=== PATIENT | female | born 1980 | race Caucasian/White ===

== ENCOUNTER → 2019-11-14 15:18 | Outpatient (CLI) | payer OTHER, SELFPAY ==
[2019-11-14 18:20] LABS: Free T3 2.2 pg/mL (2.18-3.98); T4 Free Direct 1.26 ng/dL (0.76-1.46); Thyroid Stim Hormone (TSH) 6.44 uIU/mL (0.358-3.74)
[2019-11-16 11:08] LABS: Thyroid Peroxidase AB 44 IU/mL (0-34)
== END ==
PROVIDERS: Family Provider Internal Medicine; PCP Internal Medicine; Referring Provider Internal Medicine; Visit Provider Internal Medicine
DX: R79.89 Other specified abnormal findings of blood chemistry (principal)
CPT/HCPCS: 36415; 84439; 84443; 84481; 86376

== ENCOUNTER → 2024-04-04 | Outpatient (CLI) | payer SELFPAY ==
--- NOTE | 2024-04-04 12:37 | BI_ITS ---
MAMMOGRAPHY - BILATERAL SCREENING 3-D TOMOSYNTHESIS REASON FOR EXAM: Female, 44 years old. Routine screening PERTINENT HISTORY: No significant family history. TECHNIQUE: 2-D mammograms and 3-D Tomosynthesis of the breast (s) were performed. CAD was performed. COMPARISON: None. Baseline examination. FINDINGS: The breast composition is composed of scattered fibroglandular density. Scattered benign calcifications are seen. No dense spiculated masses or suspicious microcalcifications are identified. No architectural distortion is identified. There is no skin thickening or retraction. There has been no significant change since the prior study. BI/SCRN MAMM (CAD)W/CARLINE BILAT IMPRESSION: No mammographic signs of malignancy. Routine yearly mammograms recommended. ASSESSMENT CATEGORY: BIRADS Category 1: Negative. A letter regarding these results will be sent to the patient by the facility within 30 days. FOLLOW UP RECOMMENDATION: Yearly follow up mammogram recommended. (A) Approximately 10% of breast cancers are not detected by mammography. A normal mammogram should not delay biopsy of a clinically suspicious abnormality. Electronically Signed: Jae Cruz MD at 14:23 EDT ,
== END | disposition home or self-care (01) ==
PROVIDERS: PCP Internal Medicine; Referring Provider Internal Medicine; Visit Provider Internal Medicine
DX: Z12.31 Encounter for screening mammogram for malignant neoplasm of breast (principal)
CPT/HCPCS: 77063; 77067

== ENCOUNTER → 2025-04-07 | Outpatient (CLI) | payer OTHER, SELFPAY ==
[2025-04-07 18:04] LABS: Absolute Lymphocyte Count 3.15 X10^3/uL (0.83-4.51); Absolute Neutrophil Count 8.4 X10^3/uL (2.0-7.7); Basophil# 0.03 X10^3/uL; Basophil% 0.2 % (0-1); Eosinophil# 0.04 X10^3/uL; Eosinophils% 0.3 % (0-5); Hematocrit 44.7 % (37-47); Lymphocyte # 3.15 X10^3/ul (0.83-4.51); Lymphocyte % 25.6 % (19-41); Mean Corp Hgb Conc 33.6 g/dL (32-36); Mean Corpuscular Hgb 30.1 pg (27.0-32.0); Mean Corpuscular Volume 89.8 fL (81-99); Mean Platelet Vol. 9.5 fl (6.2-12.0); Monocyte# 0.64 X10^3/uL; Monocyte% 5.2 % (0-10); NRBC Flagged by Analyzer 0 % (0-5); Neutrophil % 68.4 % (47-70); Platelet Count 319 K/mm3 (150-450); RBC Distribution Width CV 12.6 % (11.6-14.6); RBC Distribution Width SD 41.3 fl (35.1-43.9); Red Blood Count 4.98 M/mm3 (4.2-5.4); White Blood Count 12.3 K/mm3 (4.4-11.0)
[2025-04-07 18:58] LABS: ALB/GLOB Ratio 1.3 RATIO (0.9-2.4); AST(SGOT) 29 U/L (<=31); Alanine Aminotransfer ALT/SGPT 41 U/L (<=34); Albumin, Serum 4.3 g/dL (3.5-5.0); Alkaline Phosphatase 90 U/L (35-104); Anion Gap 15 (5-15); BUN 15 mg/dL (4-19); BUN/Creat Ratio 23.5 RATIO (10-20); Calcium,Total 8.9 mg/dL (7.6-11.0); Carbon Dioxide 23.5 mmol/L (21.0-32.0); Chloride 100 mmol/L (98-108); Cholesterol 187 mg/dL (<=200); Creatinine, Serum 0.62 mg/dL (0.70-1.20); EST Glomerular Filtration Rate 111 (>60); Globulin 3.2 g/dL (2.2-4.2); Glucose 95 mg/dL (70-99); High Density Lipoprotein 47 mg/dL; Low Density Lipoprotein Calc. 109 mg/dL; Potassium 3.5 mmol/L (3.3-5.1); Protein, Total 7.5 g/dL (5.9-8.4); Sodium Level 139 mmol/L (133-145); Total Bilirubin 0.41 mg/dL (0.00-1.30); Triglycerides 153 mg/dL; Very Low Density Lipoprotein 31 mg/dL (5-40); Vitamin B12 546 pg/mL (180-914); Vitamin D,25 Hydroxy 39.9 ng/mL (30-100); cholesterol:hdl ratio screen 3.96
== END | disposition home or self-care (01) ==
LOC: MTLAB 15:42
PROVIDERS: PCP Internal Medicine; Referring Provider Internal Medicine; Visit Provider Internal Medicine
DX: Z13.220 Encounter for screening for lipoid disorders (principal); R53.83 Other fatigue
CPT/HCPCS: 36415; 80053; 80061; 82306; 82607; 85025

== ENCOUNTER → 2025-04-14 | Outpatient (CLI) | payer OTHER, SELFPAY ==
--- NOTE | 2025-04-14 15:31 | BI_ITS ---
EXAM: SCRN MAMM (CAD)W/CARLINE BILAT DATE: 04/14/2025 CLINICAL HISTORY: F, Age 45 y/o , SCREENING BREAST CANCER RISK ASSESSMENT: Na TECHNIQUE: Bilateral screening digital breast tomosynthesis with 2D and 3D images. Computer aided detection. COMPARISON: Prior exam(s) were compared FINDINGS: TISSUE DENSITY: The breast tissue is heterogenously dense, which may obscure small masses. Bilateral Breast Mammographic Findings: No suspicious masses, calcifications or other abnormalities are identified. BI/SCRN MAMM (CAD)W/CARLINE BILAT IMPRESSION: OVERALL FINAL ASSESSMENT: BIRADS 1 NEGATIVE RECOMMENDATION: Routine annual follow-up in 1 Year A letter with findings and recommendations will be mailed to the patient. Reading Location: [id number]
== END | disposition home or self-care (01) ==
LOC: OPBI 15:30
PROVIDERS: PCP Internal Medicine; Referring Provider Internal Medicine; Visit Provider Internal Medicine
DX: Z12.31 Encounter for screening mammogram for malignant neoplasm of breast (principal)
CPT/HCPCS: 77063; 77067

== ENCOUNTER → 2025-05-11 | Outpatient (CLI) | payer OTHER, SELFPAY ==
[2025-05-11 18:03] LABS: Absolute Lymphocyte Count 3.75 X10^3/uL (0.83-4.51); Absolute Neutrophil Count 7.8 X10^3/uL (2.0-7.7); Basophil# 0.04 X10^3/uL; Basophil% 0.3 % (0-1); Eosinophil# 0.12 X10^3/uL; Hematocrit 44.5 % (37-47); Hemoglobin 14.8 g/dL (12.0-15.0); Lymphocyte # 3.75 X10^3/ul (0.83-4.51); Lymphocyte % 30.2 % (19-41); Mean Corp Hgb Conc 33.3 g/dL (32-36); Mean Corpuscular Hgb 30.1 pg (27.0-32.0); Mean Corpuscular Volume 90.6 fL (81-99); Mean Platelet Vol. 9.7 fl (6.2-12.0); Monocyte# 0.68 X10^3/uL; Monocyte% 5.5 % (0-10); NRBC Flagged by Analyzer 0 % (0-5); Neutrophil # 7.81 X10^3/uL (2.7-7.7); Neutrophil % 62.8 % (47-70); Platelet Count 304 K/mm3 (150-450); RBC Distribution Width CV 12.5 % (11.6-14.6); RBC Distribution Width SD 41.2 fl (35.1-43.9); Red Blood Count 4.91 M/mm3 (4.2-5.4); White Blood Count 12.4 K/mm3 (4.4-11.0)
== END | disposition home or self-care (01) ==
LOC: MTLAB 15:37
PROVIDERS: PCP Internal Medicine; Referring Provider Internal Medicine; Visit Provider Internal Medicine
DX: D72.829 Elevated white blood cell count, unspecified (principal); E78.5 Hyperlipidemia, unspecified
CPT/HCPCS: 36415; 85025

== ENCOUNTER → 2025-05-25 | Outpatient (CLI) | payer OTHER, SELFPAY ==
[2025-05-25 18:51] LABS: Hematocrit 46.8 % (37-47); Hemoglobin 15.2 g/dL (12.0-15.0); Immature Granulocytes Count 0.040 X10^3/uL (0.0-0.0); Mean Corp Hgb Conc 32.5 g/dL (32-36); Mean Corpuscular Volume 91.6 fL (81-99); Mean Platelet Vol. 10.0 fl (6.2-12.0); NRBC Flagged by Analyzer 0 % (0-5); Platelet Count 328 K/mm3 (150-450); RBC Distribution Width CV 12.3 % (11.6-14.6); RBC Distribution Width SD 41.7 fl (35.1-43.9); Red Blood Count 5.11 M/mm3 (4.2-5.4); White Blood Count 11.4 K/mm3 (4.4-11.0)
== END | disposition home or self-care (01) ==
LOC: MTLAB 15:57
PROVIDERS: PCP Internal Medicine; Referring Provider Internal Medicine; Visit Provider Internal Medicine
DX: D72.829 Elevated white blood cell count, unspecified (principal)
CPT/HCPCS: 36415; 85025

== ENCOUNTER → 2025-07-10 | Outpatient (CLI) | payer OTHER, SELFPAY ==
--- OUTSIDE RECORDS SUMMARY | 2025-07-10 07:26 | XMS RPT_ITS | CCD ---
Author Organization [facility] Care Team Providers Care Manager Of Development Name Role Phone Kymberly, Dai Unavailable Gravius, Shelby Unavailable Unavailable Unavailable Unavailable Messenger, Lelo Unavailable Unavailable Jonathan, Sunitha Unavailable Unavailable Lane Degroot Unavailable Unavailable Manchak, Nimisha Unavailable Unavailable Messenger, Lelo Unavailable Unavailable Cross, Marilee Unavailable Unavailable Kymberly DO, Dai Unavailable Slarb VIRTUAL ASSISTANT FOR ADVERTISERS, Mayuri Unavailable Unavailable Jonathan VIRTUAL ASSISTANT FOR ADVERTISERS, Sunitha Unavailable Unavailable Unavailable Unavailable Gravius CHIEF DEPUTY, Shelby Unavailable Unavailable Kymberly DO, Dai Unavailable Walker CHIEF DEPUTY, Kayela Unavailable Unavailable Kymberly DO, Dai Attending Unavailable Kymberly DO, Dai Consulting Unavailable Manchak CHIEF DEPUTY, Nimisha Unavailable Unavailable Rashad VIRTUAL ASSISTANT FOR ADVERTISERS, RICARDO Unavailable Unavailable Kymberly DO, Dr. Lala Primary Care Provider Kymberly DO, Dr. Lala Attending Provider [phone] Kymberly DO, Dr. Lala Referring Provider Kymberly, Dai Primary Care Unavailable Kymberly, Dai Attending Unavailable Kymberly, Dai Referring Unavailable Kymberly, Dai Referring Unavailable Kymberly, Dai Primary Care Unavailable Kymberly, Dai Attending Unavailable Kymberly, Dai Primary Care Unavailable Kymberly, Dai Attending Unavailable Kymberly, Dai Referring Unavailable Kymberly, Dai Primary Care Unavailable Kymberly, Dai Attending Unavailable Kymberly, Dai Primary Care Unavailable Kymberly, Dai Attending Unavailable Kymberly, Dai Referring Unavailable Medications Completed/Discontinued Medications Medication Drug Class(es) Dates Sig (Normalized) Sig (Original) Tri-Sprintec (28) 0.18/0.215/0.25 mg-35 mcg (28) oral tablet (20 sources) Progestin, Estrogen Start: 04-02-2023 take 1 tablet by mouth once daily Tri-Sprintec (28) 0.18/0.215/0.25 mg-35 mcg (28) oral tablet 1 Tablet daily for 30 days Quantity: 1 {Packet} Refills: 6 Ordered: 02-Apr-2023 Kymberly BRUCE, Dai Traylor DO Dai Start : 02-Apr-2023 Active Start: 09-18-2022 take 1 tablet by ahsan th once daily Tri-Sprintec 0.18/0.215/0.25 MG-35 MCG Oral Tablet 1 Tablet daily for 30 days Quantity: 1 {Packet} Refills: 6 Ordered: 18-Sep-2022 Kymberly BRUCE Dai Traylor DO Dai Start : 18-Sep-2022 Active Start: 03-10-2022 take 1 tablet by ahsan th once daily Tri-Sprintec 0.18/0.215/0.25 MG-35 MCG Oral Tablet 1 Tablet daily for 30 days Quantity: 1 {Packet} Refills: 6 Ordered: 10-Mar-2022 Kymberly BRUCE, Dai Fariaradha BRUCE Dai Start : 10-Mar-2022 Active Start: 08-26-2021 take 1 tablet by ahsan th once daily Tri-Sprintec 0.18/0.215/0.25 MG-35 MCG Oral Tablet 1 Tablet daily for 30 days Quantity: 1 {Package} Refills: 6 Ordered: 26-Aug-2021 Kymberly DO, Dai Traylor DO Dai Start : 26-Aug-2021 Active Start: 02-03-2021 take 1 tablet by ahsan th once daily Tri-Sprintec 0.18/0.215/0.25 MG-35 MCG Oral Tablet 1 Tablet daily for 30 days Quantity: 1 {Package} Refills: 6 Ordered: 03-Feb-2021 Kymberly DO Dai Traylor DO Dai Start : 03-Feb-2021 Active Start: 07-29-2020 take 1 tablet by ahsan th once daily Tri-Sprintec 0.18/0.215/0.25 MG-35 MCG Oral Tablet 1 Tablet daily for 30 days Quantity: 1 {Package} Refills: 6 Ordered: 29-Jul-2020 Sunitha Castillo LPN Start : 29-Jul-2020 Active End: 02-24-2021 take 1 tablet by mouth once daily Sprintec 28 0.25-35 MG-MCG Oral Tablet 1 qd (0.25-35 MG-MCG) End : 24-Feb-2021 Discontinued take 1 tablet by ahsan once daily Sprintec 28 0.25-35 MG-MCG Oral Tablet 1 qd (0.25-35 MG-MCG) Active levothyroxine sodium 0.15 mg oral capsule (20 sources) l-Thyroxine Start: 07-23-2023 levothyroxine 150 mcg oral capsule 1 (one) Capsule qd except on Sunday take 2 for 0 days Quantity: 30 {Capsule} Refills: 2 Ordered: 20-Aug-2023 Dai Traylor DO, DO, Kathleen Start : 20-Aug-2023 Active Start: 05-28-2023 take 1 capsule by [facility] once daily levothyroxine 150 mcg oral capsule 1 (one) Capsule daily for 0 days Quantity: 30 {Capsule} Refills: 2 Ordered: 28-May-2023 Dai Traylor DO, DO, Kathleen Start : 28-May-2023 Active Start: 03-26-2023 take 1 capsule by [facility] once daily levothyroxine 137 mcg oral capsule 1 (one) Capsule daily for 0 days Quantity: 30 {Capsule} Refills: 5 Ordered: 26-Mar-2023 Dai Traylor DO, DO, Kathleen Start : 26-Mar-2023 Active Start: 10-20-2022 take 1 capsule by [facility] once daily levothyroxine 125 mcg oral capsule 1 (one) Capsule daily for 0 days Quantity: 30 {Capsule} Refills: 5 Ordered: 20-Oct-2022 Dai Traylor DO, DO, Kathleen Start : 20-Oct-2022 Active Start: 10-19-2022 take 1 capsule by [facility] once daily levothyroxine 137 mcg oral capsule 1 (one) Capsule daily for 0 days Quantity: 30 {Capsule} Refills: 5 Ordered: 19-Oct-2022 Dai Traylor DO, DO, Kathleen Start : 19-Oct-2022 Active Start: 03-24-2022 take 1 capsule by mo ut once daily Levothyroxine Sodium 137 MCG Oral Capsule 1 (one) Capsule daily for 0 days Quantity: 30 {Capsule} Refills: 5 Ordered: 24-Mar-2022 Kymberly DODai DODanaDai Start : 24-Mar-2022 Active Start: 03-21-2022 take 1 capsule by mo uth once daily Levothyroxine Sodium 137 MCG Oral Capsule 1 (one) Capsule daily for 0 days Quantity: 30 {Capsule} Refills: 5 Ordered: 21-Mar-2022 Kymberly DODai DO, Kathleen Start : 21-Mar-2022 Active Start: 01-23-2022 take 1 capsule by mo ut once daily Levothyroxine Sodium 137 MCG Oral Capsule 1 (one) Capsule daily for 0 days Quantity: 30 {Capsule} Refills: 0 Ordered: 23-Jan-2022 Dai Traylor DO, DO, Kathleen Start : 23-Jan-2022 Active Start: 12-22-2021 take 1 capsule by mo ut once daily Levothyroxine Sodium 137 MCG Oral Capsule 1 (one) Capsule daily for 0 days Quantity: 30 {Capsule} Refills: 0 Ordered: 22-Dec-2021 Dai Traylor DO, DO, Kathleen Start : 22-Dec-2021 Active Start: 11-23-2021 take 1 capsule by mo ut once daily Levothyroxine Sodium 137 MCG Oral Capsule 1 (one) Capsule daily for 0 days Quantity: 30 {Capsule} Refills: 0 Ordered: 23-Nov-2021 Kymberly DODai DO, Kathleen Start : 23-Nov-2021 Active Start: 02-03-2021 take 1 tablet by ahsan th once daily, then take 0.5 tablet by mouth Levothyroxine Sodium 125 MCG Oral Tablet 1 (one) Tablet qd and 1/2 mckeon on sat for 90 days Quantity: 90 {Tablet} Refills: 3 Ordered: 03-Feb-2021 Kymberly DODai DO, Kathleen Start : 03-Feb-2021 Active Start: 09-28-2020 take 1 tablet by ahsan th once daily, then take 0.5 tablet by mouth Levothyroxine Sodium 125 MCG Oral Tablet 1 (one) Tablet qd and 1/2 mckeon on sat for 30 days Quantity: 30 {Tablet} Refills: 2 Ordered: 28-Sep-2020 Kymberly DO, Dai Kymberly DO Dai Start : 28-Sep-2020 Active Start: 09-22-2020 take 1 tablet by ahsan th once daily, then take 0.5 tablet by mouth Levothyroxine Sodium 125 MCG Oral Tablet 1 (one) Tablet qd and 1/2 mckeon on sat for 30 days Quantity: 30 {Tablet} Refills: 2 Ordered: 23-Sep-2020 Kymberly DO, Dai Kymberly DO Dai Start : 23-Sep-2020 Active Start: 07-21-2020 take 1 tablet by ahsan th once daily, then take 0.5 tablet by mouth Levothyroxine Sodium 125 MCG Oral Tablet 1 (one) Tablet qd and 1/2 mckeon on sat and sun for 30 days Quantity: 30 {Tablet} Refills: 2 Ordered: 21-Jul-2020 Kymberly DO, Dai Kymberly DO Dai Start : 21-Jul-2020 Active Start: 07-20-2020 take 1 tablet by ahsan th once daily, then take 0.5 tablet by mouth Levothyroxine Sodium 125 MCG Oral Tablet 1 (one) Tablet qd and 1/2 mckeon on sat and sun for 30 days Quantity: 30 {Tablet} Refills: 2 Ordered: 20-Jul-2020 Kymberly DO, Daicarlin Traylor DOHeavenlyDai Start : 20-Jul-2020 Active Start: 05-31-2020 take 1 tablet by ahsan th once daily, then take 0.5 tablet by mouth Levothyroxine Sodium 125 MCG Oral Tablet 1 (one) Tablet qd and 1/2 mckeon on sat and sun for 0 days Quantity: 30 {Tablet} Refills: 2 Ordered: 31-May-2020 Kymberly DO Dai Kymberly DO Dai Start : 31-May-2020 Active Start: 04-12-2020 take 1 tablet by ahsan th once daily Levothyroxine Sodium 125 MCG Oral Tablet 1 (one) Tablet daily for 0 days Quantity: 30 {Tablet} Refills: 2 Ordered: 12-Apr-2020 Kymberly DO, Dai Kymberly DO Dai Start : 12-Apr-2020 Active take 1 capsule by [facility] once daily Levothyroxine Sodium 125 MCG Oral Capsule 1 qd (125 MCG) Inactive take 1 capsule by mo ut once daily Levothyroxine Sodium 125 MCG Oral Capsule 1 qd (125 MCG) Active liothyronine sodium 0.025 mg oral tablet (20 sources) l-Triiodothyronine Start: 11-17-2019 End: 03-29-2020 take 0.5 tablet by mouth once daily Cytomel 25 MCG Oral Tablet 1/2 Tablet qd for 0 days Quantity: 30 {Tablet} Refills: 3 Ordered: 29-Mar-2020 Shelby Chiang CMA Start : 17-Nov-2019 End : 29-Mar-2020 Inactive Problems Active Problems Problem Classification Problem Date Documented Date Episodic/Chronic Contraceptive and procreative management (20 sources) Oral contraception status; Translations: [Family planning, BCP ( control pills) maintenance] 07-29-2020 Episodic Diseases of white blood cells (2 sources) Elevated white blood cell count, unspecified; Translations: [Elevated white blood cell count, unspecified] Onset: 05-28-2025 Chronic Fever of unknown origin (18 sources) Fever; Translations: [Fever] Resolved: 03-23-2023 10-25-2022 Episodic Other congenital anomalies (20 sources) Barney syndrome; 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 Other lower respiratory disease (18 sources) Cough; Translations: [Cough] Resolved: 03-23-2023 10-25-2022 Episodic Other nutritional; endocrine; and metabolic disorders (20 sources) Body mass index 30+ - obesity; Translations: [BMI 33.0-33.9,adult] Resolved: 03-23-2023 03-29-2020 Chronic Other nutritional; endocrine; and metabolic disorders (20 sources) Overweight in adulthood with body mass index of 25 or more but less than 30; Translations: [BMI 27.0-27.9,adult] Resolved: 03-17-2022 03-17-2022 Episodic Other screening for suspected conditions (not mental disorders or infectious disease) (20 sources) Thyroid hormone tests abnormal; Translations: [Abnormal TSH] Onset: 04-14-2025 Resolved: 03-17-2022 03-29-2020 Episodic Pneumonia (except that caused by tuberculosis or sexually transmitted disease) (18 sources) Severe acute respiratory syndrome; Translations: [SARS (severe acute respiratory syndrome)] Resolved: 03-23-2023 10-25-2022 Episodic Residual codes; unclassified (20 sources) Influenza vaccination declined; Translations: [Influenza vaccination declined] 10-12-2021 Episodic Residual codes; unclassified (20 sources) Non-smoker; Translations: [Non-smoker] 10-12-2021 Episodic Thyroid disorders (20 sources) Slade thyroiditis; 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 Unclassified (20 sources) BMI 33.0-33.9,adult Unclassified (20 sources) Influenza vaccination declined; Translations: [Influenza vaccination declined] 03-29-2020 Unclassified (20 sources) Patient encounter status; Translations: [Encounter for screening for lipid disorder] 03-29-2020 Unclassified (20 sources) Abnormal TSH Unclassified (20 sources) Non-smoker; Translations: [Non-smoker] 03-29-2020 Unclassified (20 sources) Adult hypothyroidism Unclassified (20 sources) Unclassified (20 sources) 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) BMI 27.0-27.9,adult Unclassified (2 sources) BMI 31.0-31.9,adult Past or Other Problems Problem Classification Problem Date Documented Date Episodic/Chronic Chronic obstructive pulmonary disease and bronchiectasis (9 sources) Chronic obstructive pulmonary disease and bronchiectasis Other nutritional; endocrine; and metabolic disorders (6 sources) Body mass index 25-29 - overweight; Translations: [BMI 27.0-27.9,adult] Resolved: 03-17-2022 10-12-2021 Episodic Unclassified (20 sources) Encounter for well adult exam with abnormal findings Unclassified (20 sources) BMI 35.0-35.9,adult Unclassified (16 sources) Family planning, BCP ( control pills) maintenance NEGATED: Highlighted row has been ruled out!Unclassified (20 sources) Problem Onset: 09-29-2019 03-29-2020 Results Test Name Value Interpretation Reference Range Facility Absolute lymphocyte countOrd ered By: Dai Traylor on 05-25-2025 Lymphocytes Auto (Unsp spec) [#/Vol] 3.31 10*3/uL 0.83-4.51 [facility] Absolute neutrophil countOrd ered By: Dai Traylor on 05-25-2025 Neutrophils (Bld) [#/Vol] 7.1 10*3/uL 2.0-7.7 [facility] Automated lymphocyte count a s percentage of total leukocytesOrdered By: Dai Traylor on 05-25-2025 Lymphocytes/100 WBC Auto (Unsp spec) 29.2 % 19-41 [facility] Basophil percentageOrdered B y: Dai Traylor on 05-25-2025 Basophils/100 WBC (Bld) 0.4 % 0-1 [facility] CBC W/Diff, Automatedon 05-12-2024 Absolute Lymph 3.31 X10 3/uL Normal 0.83-4.51 [facility] Comment on above: Performed By: #### L 100.0100 #### [facility] [address] [place], [address] Absolute Neut 7.1 X10 3/uL Normal 2.0-7.7 [facility] Comment on above: Performed By: #### L 100.0100 #### [facility] [address] [place], [address] Basophils/100 WBC (Bld) 0.4 % Normal 0-1 [facility] Comment on above: Performed By: #### L 100.0100 #### [facility] [address] [place], [address] Eosinophils/100 WBC (Bld) 0.6 % Normal 0-5 [facility] Comment on above: Performed By: #### L 100.0100 #### [facility] [address] [place], [address] Erythrocyte distribution width (RBC) [Ratio] 12.3 % Normal 11.6-14.6 [facility] Comment on above: Performed By: #### L 100.0100 #### [facility] [address] [place], [address] Hematocrit (Bld) [Volume fraction] 46.8 % Normal 37-47 [facility] Comment on above: Performed By: #### L 100.0100 #### [facility] [address] [place], [address] Hemoglobin (Bld) [Mass/Vol] 15.2 g/dL High 12.0-15.0 [facility] Comment on above: Performed By: #### L 100.0100 #### [facility] [address] [place], [address] IG% 0.400 Normal 0.0-0.9 [facility] Comment on above: Result Comment: IG% - Immature Granulocytes (promyelocytes, myelocytes and metamyelocytes) > 1% indicates that a LEFT SHIFT is Present. Performed By: #### L 100.0100 #### [facility] [address] [place], [address] Lymphocytes/100 WBC (Bld) 29.2 % Normal 19-41 [facility] Comment on above: Performed By: #### L [id number] #### [facility] [address] [place], [address] MCH (RBC) [Entitic mass] 29.7 pg Normal 27.0-32.0 [facility] Comment on above: Performed By: #### L 100.0100 #### [facility] [address] [place], [address] MCHC (RBC) [Mass/Vol] 32.5 g/dL Normal 32-36 [facility] Comment on above: Performed By: #### L 100.0100 #### [facility] [address] [place], [address] MCV (RBC) [Entitic vol] 91.6 fL Normal 81-99 [facility] Comment on above: Performed By: #### L 100.0100 #### [facility] [address] [place], [address] Monocytes/100 WBC (Bld) 7.1 % Normal 0-10 [facility] Comment on above: Performed By: #### L 100.0100 #### [facility] [address] [place], [address] Neutrophils/100 WBC (Bld) 62.3 % Normal 47-70 [facility] Comment on above: Performed By: #### L 100.0100 #### [facility] [address] [place], [address] Nucleated RBC (Bld) [#/Vol] 0 10*3/uL Normal 0-5 [facility] Comment on above: Performed By: #### L 100.0100 #### [facility] [address] [place], [address] Platelet mean volume (Bld) [Entitic vol] 10.0 fL Normal 6.2-12.0 [facility] Comment on above: Performed By: #### L 100.0100 #### [facility] [address] [place], [address] Platelets (Bld) [#/Vol] 328 10*3/uL Normal 150-450 [facility] Comment on above: Performed By: #### L 100.0100 #### [facility] [address] [place], [address] RBC (Bld) [#/Vol] 5.11 10*6/uL Normal 4.2-5.4 [facility] Comment on above: Performed By: #### L 100.0100 #### [facility] [address] [place], [address] RDW SD 41.7 fl Normal 35.1-43.9 [facility] Comment on above: Performed By: #### L 100.0100 #### [facility] [address] [place], [address] WBC (Bld) [#/Vol] 11.4 10*3/uL High 4.4-11.0 [facility] Comment on above: Performed By: #### L 100.0100 #### [facility] [address] [place], [address] Eosinophil percentageOrdered By: Dai Traylor on 05-25-2025 Eosinophils/100 WBC (Bld) 0.6 % 0-5 [facility] Erythrocyte distribution wid th ratioOrdered By: Dai Traylor on 05-25-2025 Erythrocyte distribution width (RBC) [Ratio] 12.3 % 11.6-14.6 [facility] Erythrocyte distribution wid th standard deviationOrdered By: Daicarlin Traylor on 05-25-2025 Erythrocyte distribution width (RBC) [Ratio] 41.7 fl 35.1-43.9 [facility] Hematocrit Auto (Bld) [Volum e fraction]Ordered By: Dai Traylor on 05-25-2025 Hematocrit (Bld) [Volume fraction] 46.8 % 37-47 [facility] Hemoglobin measurementOrdere d By: Dai Traylor on 05-25-2025 Hemoglobin (Bld) [Mass/Vol] 15.2 g/dL High 12.0-15.0 [facility] Immature granulocytes/100 WB C Auto (Bld)Ordered By: Dai Traylor on 05-25-2025 Immature granulocytes/100 WBC (Bld) 0.400 % 0.0-0.9 [facility] Comment on above: IG% - Immature Granu locytes (promyelocytes, myelocytes and metamyelocytes) > 1% indicates that a LEFT SHIFT is Present. MCV (mean corpuscular volume ) determinationOrdered By: Dai Traylor on 05-25-2025 MCV (RBC) [Entitic vol] 91.6 fL 81-99 [facility] Mean corpuscular hemoglobin (MCH) determinationOrdered By: Dai Traylor 05-25-2025 MCH (RBC) [Entitic mass] 29.7 pg 27.0-32.0 [facility] Mean corpuscular hemoglobin concentration (MCHC) determinationOrdered By: Dai Traylor on 05-25-2025 MCHC (RBC) [Mass/Vol] 32.5 g/dL 32-36 [facility] Mean platelet volume determi nationOrdered By: Dai Kymberly on 05-25-2025 Platelet mean volume (Bld) [Entitic vol] 10.0 fL 6.2-12.0 [facility] Monocyte percentageOrdered B y: Dai Traylor on 05-25-2025 Monocytes/100 WBC (Bld) 7.1 % 0-10 [facility] Neutrophil percentageOrdered By: Daihodan Traylor on 05-25-2025 Neutrophils/100 WBC (Bld) 62.3 % 47-70 [facility] Nucleated red blood cell per centageOrdered By: Daihodna Traylor on 05-25-2025 Nucleated RBC/100 WBC (Bld) [Ratio] 0 % 0-5 [facility] Platelet countOrdered By: King fan Kymberly on 05-25-2025 Platelets (Bld) [#/Vol] 328 10*3/uL 150-450 [facility] RBC Auto (Bld) [#/Vol]Ordere d By: Dai Kymberly on 05-25-2025 RBC (Bld) [#/Vol] 5.11 10*6/uL 4.2-5.4 [facility] White blood cell (WBC) count Ordered By: Daicarlin Traylor on 05-25-2025 WBC (Bld) [#/Vol] 11.4 10*3/uL High 4.4-11.0 [facility] Absolute lymphocyte countOrd ered By: Dai Traylor on 05-11-2025 Lymphocytes Auto (Unsp spec) [#/Vol] 3.75 10*3/uL 0.83-4.51 [facility] Absolute neutrophil countOrd ered By: Daihodan Traylor on 05-11-2025 Neutrophils (Bld) [#/Vol] 7.8 10*3/uL High 2.0-7.7 [facility] Automated lymphocyte count a s percentage of total leukocytesOrdered By: Dai Traylor on 05-11-2025 Lymphocytes/100 WBC Auto (Unsp spec) 30.2 % 19-41 [facility] Basophil percentageOrdered B y: Dai Traylor on 05-11-2025 Basophils/100 WBC (Bld) 0.3 % 0-1 [facility] CBC W/DiffWilmanon 04-14-2024 Absolute Lymph 3.75 X10 3/uL Normal 0.83-4.51 [facility] Comment on above: Order Comment: RUPAL CANTU REQUESTED ONLY CBC BE DRAWN TODAY Performed By: #### L 100.0100 #### [facility] [address] [place], [address] Absolute Neut 7.8 X10 3/uL High 2.0-7.7 [facility] Comment on above: Order Comment: RUPAL CANTU REQUESTED ONLY CBC BE DRAWN TODAY Performed By: #### L 100.0100 #### [facility] [address] [place], [address] Basophils/100 WBC (Bld) 0.3 % Normal 0-1 [facility] Comment on above: Order Comment: RUPAL CANTU REQUESTED ONLY CBC BE DRAWN TODAY Performed By: #### L 100.0100 #### [facility] [address] [place], [address] Eosinophils/100 WBC (Bld) 1.0 % Normal 0-5 [facility] Comment on above: Order Comment: RUPAL CANTU REQUESTED ONLY CBC BE DRAWN TODAY Performed By: #### L 100.0100 #### [facility] [address] [place], [address] Erythrocyte distribution width (RBC) [Ratio] 12.5 % Normal 11.6-14.6 [facility] Comment on above: Order Comment: RUPAL CANTU REQUESTED ONLY CBC BE DRAWN TODAY Performed By: #### L 100.0100 #### [facility] [address] [place], [address] Hematocrit (Bld) [Volume fraction] 44.5 % Normal 37-47 [facility] Comment on above: Order Comment: RUPAL CANTU REQUESTED ONLY CBC BE DRAWN TODAY Performed By: #### L 100.0100 #### [facility] [address] [place], [address] Hemoglobin (Bld) [Mass/Vol] 14.8 g/dL Normal 12.0-15.0 [facility] Comment on above: Order Comment: RUPAL CANTU REQUESTED ONLY CBC BE DRAWN TODAY Performed By: #### L 100.0100 #### [facility] [address] [place], [address] IG% 0.200 Normal 0.0-0.9 [facility] Comment on above: Order Comment: RUPAL CANTU REQUESTED ONLY CBC BE DRAWN TODAY Result Comment: IG% - Immature Granulocytes (promyelocytes, myelocytes and metamyelocytes) > 1% indicates that a LEFT SHIFT is Present. Performed By: #### L 100.0100 #### [facility] [address] [place], [address] Lymphocytes/100 WBC (Bld) 30.2 % Normal 19-41 [facility] Comment on above: Order Comment: RUPAL CANTU REQUESTED ONLY CBC BE DRAWN TODAY Performed By: #### L 100.0100 #### [facility] [address] [place], [address] MCH (RBC) [Entitic mass] 30.1 pg Normal 27.0-32.0 [facility] Comment on above: Order Comment: RUPAL CANTU REQUESTED ONLY CBC BE DRAWN TODAY Performed By: #### L 100.0100 #### [facility] [address] [place], [address] MCHC (RBC) [Mass/Vol] 33.3 g/dL Normal 32-36 [facility] Comment on above: Order Comment: RUPAL CANTU REQUESTED ONLY CBC BE DRAWN TODAY Performed By: #### L 100.0100 #### [facility] [address] [place], [address] MCV (RBC) [Entitic vol] 90.6 fL Normal 81-99 [facility] Comment on above: Order Comment: RUPAL CANTU REQUESTED ONLY CBC BE DRAWN TODAY Performed By: #### L 100.0100 #### [facility] [address] [place], [address] Monocytes/100 WBC (Bld) 5.5 % Normal 0-10 [facility] Comment on above: Order Comment: RUPAL CANTU REQUESTED ONLY CBC BE DRAWN TODAY Performed By: #### L 100.0100 #### [facility] [address] [place], [address] Neutrophils/100 WBC (Bld) 62.8 % Normal 47-70 [facility] Comment on above: Order Comment: RUPAL CANTU REQUESTED ONLY CBC BE DRAWN TODAY Performed By: #### L 100.0100 #### [facility] [address] [place], [address] Nucleated RBC (Bld) [#/Vol] 0 10*3/uL Normal 0-5 [facility] Comment on above: Order Comment: RUPAL CANTU REQUESTED ONLY CBC BE DRAWN TODAY Performed By: #### L 100.0100 #### [facility] [address] [place], [address] Platelet mean volume (Bld) [Entitic vol] 9.7 fL Normal 6.2-12.0 [facility] Comment on above: Order Comment: RUPAL CANTU REQUESTED ONLY CBC BE DRAWN TODAY Performed By: #### L 100.0100 #### [facility] [address] [place], [address] Platelets (Bld) [#/Vol] 304 10*3/uL Normal 150-450 [facility] Comment on above: Order Comment: RUPAL CANTU REQUESTED ONLY CBC BE DRAWN TODAY Performed By: #### L 100.0100 #### [facility] [address] [place], [address] RBC (Bld) [#/Vol] 4.91 10*6/uL Normal 4.2-5.4 [facility] Comment on above: Order Comment: RUPAL CANTU REQUESTED ONLY CBC BE DRAWN TODAY Performed By: #### L 100.0100 #### [facility] [address] [place], [address] RDW SD 41.2 fl Normal 35.1-43.9 [facility] Comment on above: Order Comment: RUPAL CANTU REQUESTED ONLY CBC BE DRAWN TODAY Performed By: #### L 100.0100 #### [facility] [address] [place], [address] WBC (Bld) [#/Vol] 12.4 10*3/uL High 4.4-11.0 [facility] Comment on above: Order Comment: RUPAL CANTU REQUESTED ONLY CBC BE DRAWN TODAY Performed By: #### L 100.0100 #### [facility] [address] [place], [address] Eosinophil percentageOrdered By: Dai Traylor on 05-11-2025 Eosinophils/100 WBC (Bld) 1.0 % 0-5 [facility] Erythrocyte distribution wid th ratioOrdered By: Dai Traylor on 05-11-2025 Erythrocyte distribution width (RBC) [Ratio] 12.5 % 11.6-14.6 [facility] Erythrocyte distribution wid th standard deviationOrdered By: Dai Traylor on 05-11-2025 Erythrocyte distribution width (RBC) [Ratio] 41.2 fl 35.1-43.9 [facility] Hematocrit Auto (Bld) [Volum e fraction]Ordered By: Dai Traylor on 05-11-2025 Hematocrit (Bld) [Volume fraction] 44.5 % 37-47 [facility] Hemoglobin measurementOrdere d By: Dai Traylor on 05-11-2025 Hemoglobin (Bld) [Mass/Vol] 14.8 g/dL 12.0-15.0 [facility] Immature granulocytes/100 WB C Auto (Bld)Ordered By: Dai Traylor on 05-11-2025 Immature granulocytes/100 WBC (Bld) 0.200 % 0.0-0.9 [facility] Comment on above: IG% - Immature Granu locytes (promyelocytes, myelocytes and metamyelocytes) > 1% indicates that a LEFT SHIFT is Present. MCV (mean corpuscular volume ) determinationOrdered By: Dai Traylor on 05-11-2025 MCV (RBC) [Entitic vol] 90.6 fL 81-99 [facility] Mean corpuscular hemoglobin (MCH) determinationOrdered By: Dai Traylor on 05-11-2025 MCH (RBC) [Entitic mass] 30.1 pg 27.0-32.0 [facility] Mean corpuscular hemoglobin concentration (MCHC) determinationOrdered By: Dai Traylor on 05-11-2025 MCHC (RBC) [Mass/Vol] 33.3 g/dL 32-36 [facility] Mean platelet volume determi nationOrdered By: Dai Traylor on 05-11-2025 Platelet mean volume (Bld) [Entitic vol] 9.7 fL 6.2-12.0 [facility] Monocyte percentageOrdered B y: Dai Traylor on 05-11-2025 Monocytes/100 WBC (Bld) 5.5 % 0-10 [facility] Neutrophil percentageOrdered By: Dai Traylor on 05-11-2025 Neutrophils/100 WBC (Bld) 62.8 % 47-70 [facility] Nucleated red blood cell per centageOrdered By: Dai Traylor on 05-11-2025 Nucleated RBC/100 WBC (Bld) [Ratio] 0 % 0-5 [facility] Platelet countOrdered By: King Traylor on 05-11-2025 Platelets (Bld) [#/Vol] 304 10*3/uL 150-450 [facility] RBC Auto (Bld) [#/Vol]Ordere d By: Dai Traylor on 05-11-2025 RBC (Bld) [#/Vol] 4.91 10*6/uL 4.2-5.4 [facility] White blood cell (WBC) count Ordered By: Dai Traylor on 05-11-2025 WBC (Bld) [#/Vol] 12.4 10*3/uL High 4.4-11.0 [facility] Breast imaging reportOrdered By: Medina Fagan on 04-14-2025 Study report [facility] Imaging Services [address] [place], [place] [id number] SCRN MAMM (CAD)W/CARLINE BILAT MR#: [id number] Acct: [id number] Name: BUFFY HOANG Rep #: [id number] : 1980 F 45 From: Jan Shaw MD PCP: Dr. Dai Traylor DO Status: RE G CLI Study:SCRN MAMM (CAD)W/CARLINE BILAT Date of Exa m: 04/14/25 Exam# [id number] Ordering Dr: Kodak Traylor DO EXAM: SCRN MAMM (CAD)W/CARLINE BILAT DATE: 04/14/2025 CLINICAL HISTORY: F, Age 45 y/o , SCREENING BREAST CANCER RISK ASSESSMENT: Na TECHNIQUE: Bilateral screening digital breast tomosynthesis with 2D and 3D images. Computeraided detection. COMPARISON: Prior exam(s) were compared FINDINGS: TISSUE DENSITY: The breast tissue is heterogenously dense, which may obscure small masses. Bilateral Breast Mammographic Findings: No suspicious masses, calcifications or other abnormalities are identified. BI/SCRN MAMM (CAD)W/CARLINE BILAT IMPRESSION: OVERALL FINAL ASSESSMENT: BIRADS 1 NEGATIVE RECOMMENDATION: Routine annual follow-up in 1 Year A letter with findings and recommendations will be mailed to the patient. Reading Location: [id number] CC: Dr. Dai Traylor DO ~ Patent Agent: Signed [facility] SCRN MAMM (CAD)W/CARLINE BILATo n 04-14-2025 SCRN MAMM (CAD)W/CARLINE BILAT [facility] Imaging Services [address] [place] [id number] SCRN MAMM (CAD)W/CARLINE BILAT MR#: [id number] Acct: [id number] Name: BUFFY HOANG Rep #: [id number] : 1980 F 45 From: Medina Corcoran i, MD PCP: Dr. Dai Traylor DO Status: REG CLI Study: SCRN MAMM (CAD)W/CARLINE BILAT Date of Exam: 02/03 Exam# [id number] Ordering Dr: Dai Traylor DO EXAM: SCRN MAMM (CAD)W/CARLINE BILAT DATE: 04/14/2025 CLINICAL HISTORY: F, Age 45 y/o , SCREENING BREAST CANCER RISK ASSESSMENT: Na TECHNIQUE: Bilateral screening digital breast tomosynthesis with 2D and 3D images. Computer aided detection. COMPARISON: Prior exam(s) were compared FINDINGS: TISSUE DENSITY: The breast tissue is heterogenously dense, which may obscure small masses. Bilateral Breast Mammographic Findings: No suspicious masses, calcifications or other abnormalities are identified. BI/SCRN MAMM (CAD)W/CARLINE BILAT IMPRESSION: OVERALL FINAL ASSESSMENT: BIRADS 1 NEGATIVE RECOMMENDATION: Routine annual follow-up in 1 Year A letter with findings and recommendations will be mailed to the patient. Reading Location: [id number] CC: Dr. Dai Traylor DO Patent Agent: Signed Normal [facility] Absolute lymphocyte countOrd ered By: Dai Traylor on 04-07-2025 Lymphocytes Auto (Unsp spec) [#/Vol] 3.15 10*3/uL 0.83-4.51 [facility] Absolute neutrophil countOrd ered By: Dai Traylor on 04-07-2025 Neutrophils (Bld) [#/Vol] 8.4 10*3/uL High 2.0-7.7 [facility] Anion gap in Serum or Plasma Ordered By: Dai Traylor on 04-07-2025 Anion gap [Moles/Vol] 15 mmol/L 5-15 [facility] Automated lymphocyte count a s percentage of total leukocytesOrdered By: Dai Traylor on 04-07-2025 Lymphocytes/100 WBC Auto (Unsp spec) 25.6 % 19-41 [facility] BUN/creatinine ratioOrdered By: Dai Traylor on 04-07-2025 Urea nitrogen/Creatinine [Mass ratio] 23.5 mg/mg High 10-20 [facility] Basophil percentageOrdered B y: Dai Traylor on 04-07-2025 Basophils/100 WBC (Bld) 0.2 % 0-1 [facility] Bilirubin, totalOrdered By: Dai Traylor on 04-07-2025 Bilirubin [Mass/Vol] 0.41 mg/dL 0.00-1.30 [facility] CBC W/Diff, Automatedon 03-13 Absolute Lymph 3.15 X10 3/uL Normal 0.83-4.51 [facility] Comment on above: Performed By: #### L 500.4050, L100.0100, L500.4100, L503.0106, L506.1001 #### [facility] [address] [place], [address] Absolute Neut 8.4 X10 3/uL High 2.0-7.7 [facility] Comment on above: Performed By: #### L 500.4050, L100.0100, L500.4100, L503.0106, L506.1001 #### [facility] [address] [place], [address] Basophils/100 WBC (Bld) 0.2 % Normal 0-1 [facility] Comment on above: Performed By: #### L 500.4050, L100.0100, L500.4100, L503.0106, L506.1001 #### [facility] [address] [place], [address] Eosinophils/100 WBC (Bld) 0.3 % Normal 0-5 [facility] Comment on above: Performed By: #### L 500.4050, L100.0100, L500.4100, L503.0106, L506.1001 #### [facility] [address] [place], [address] Erythrocyte distribution width (RBC) [Ratio] 12.6 % Normal 11.6-14.6 [facility] Comment on above: Performed By: #### L 500.4050, L100.0100, L500.4100, L503.0106, L506.1001 #### [facility] [address] [place], [address] Hematocrit (Bld) [Volume fraction] 44.7 % Normal 37-47 [facility] Comment on above: Performed By: #### L 500.4050, L100.0100, L500.4100, L503.0106, L506.1001 #### [facility] [address] [place], [address] Hemoglobin (Bld) [Mass/Vol] 15.0 g/dL Normal 12.0-15.0 [facility] Comment on above: Performed By: #### L 500.4050, L100.0100, L500.4100, L503.0106, L506.1001 #### [facility] [address] [place], [address] IG% 0.300 Normal 0.0-0.9 [facility] Comment on above: Result Comment: IG% - Immature Granulocytes (promyelocytes, myelocytes and metamyelocytes) > 1% indicates that a LEFT SHIFT is Present. Performed By: #### L 500.4050, L100.0100, L500.4100, L503.0106, L506.1001 #### [facility] [address] [place], [address] Lymphocytes/100 WBC (Bld) 25.6 % Normal 19-41 [facility] Comment on above: Performed By: #### L 500.4050, L100.0100, L500.4100, L503.0106, L506.1001 #### [facility] [address] [place], [address] MCH (RBC) [Entitic mass] 30.1 pg Normal 27.0-32.0 [facility] Comment on above: Performed By: #### L 500.4050, L100.0100, L500.4100, L503.0106, L506.1001 #### [facility] [address] [place], [address] MCHC (RBC) [Mass/Vol] 33.6 g/dL Normal 32-36 [facility] Comment on above: Performed By: #### L 500.4050, L100.0100, L500.4100, L503.0106, L506.1001 #### [facility] [address] [place], [address] MCV (RBC) [Entitic vol] 89.8 fL Normal 81-99 [facility] Comment on above: Performed By: #### L 500.4050, L100.0100, L500.4100, L503.0106, L506.1001 #### [facility] [address] [place], [address] Monocytes/100 WBC (Bld) 5.2 % Normal 0-10 [facility] Comment on above: Performed By: #### L 500.4050, L100.0100, L500.4100, L503.0106, L506.1001 #### [facility] [address] [place], [address] Neutrophils/100 WBC (Bld) 68.4 % Normal 47-70 [facility] Comment on above: Performed By: #### L 500.4050, L100.0100, L500.4100, L503.0106, L506.1001 #### [facility] [address] [place], [address] Nucleated RBC (Bld) [#/Vol] 0 10*3/uL Normal 0-5 [facility] Comment on above: Performed By: #### L 500.4050, L100.0100, L500.4100, L503.0106, L506.1001 #### [facility] [address] [place], [address] Platelet mean volume (Bld) [Entitic vol] 9.5 fL Normal 6.2-12.0 [facility] Comment on above: Performed By: #### L 500.4050, L100.0100, L500.4100, L503.0106, L506.1001 #### [facility] [address] [place], [address] Platelets (Bld) [#/Vol] 319 10*3/uL Normal 150-450 [facility] Comment on above: Performed By: #### L 500.4050, L100.0100, L500.4100, L503.0106, L506.1001 #### [facility] [address] [place], [address] RBC (Bld) [#/Vol] 4.98 10*6/uL Normal 4.2-5.4 [facility] Comment on above: Performed By: #### L 500.4050, L100.0100, L500.4100, L503.0106, L506.1001 #### [facility] [address] [place], [address] RDW SD 41.3 fl Normal 35.1-43.9 [facility] Comment on above: Performed By: #### L 500.4050, L100.0100, L500.4100, L503.0106, L506.1001 #### [facility] [address] [place], [address] WBC (Bld) [#/Vol] 12.3 10*3/uL High 4.4-11.0 [facility] Comment on above: Performed By: #### L 500.4050, L100.0100, L500.4100, L503.0106, L506.1001 #### [facility] [address] [place], [address] Calculated very low density lipoprotein (VLDL) cholesterol measurementOrdered By: Dai Traylor on 04-07-2025 Calculated very low density lipoprotein (VLDL) cholesterol measurement 31 mg/dL 5-40 [facility] Carbon dioxide, total [Moles /volume] in Central venous bloodOrdered By: Dai Traylor on 04-07-2025 CO2 [Moles/Vol] 23.5 mmol/L 21.0-32.0 [facility] Chloride assayOrdered By: King Traylor on 04-07-2025 Chloride [Moles/Vol] 100 mmol/L 98-108 [facility] Comprehensive Metabolic Prof ilon 04-07-2025 Albumin [Mass/Vol] 4.3 g/dL Normal 3.5-5.0 [facility] Comment on above: Performed By: #### L 500.4050, L100.0100, L500.4100, L503.0106, L506.1001 #### [facility] [address] [place], [address] Albumin/Globulin [Mass ratio] 1.3 {ratio} Normal 0.9-2.4 [facility] Comment on above: Performed By: #### L 500.4050, L100.0100, L500.4100, L503.0106, L506.1001 #### [facility] [address] [place], [address] ALK PHOS 90 U/L Normal 35-104 [facility] Comment on above: Performed By: #### L 500.4050, L100.0100, L500.4100, L503.0106, L506.1001 #### [facility] [address] [place], [address] ALT [Catalytic activity/Vol] 41 U/L High <=34 [facility] Comment on above: Performed By: #### L 500.4050, L100.0100, L500.4100, L503.0106, L506.1001 #### [facility] [address] [place], [address] AST [Catalytic activity/Vol] 29 U/L Normal <=31 [facility] Comment on above: Performed By: #### L 500.4050, L100.0100, L500.4100, L503.0106, L506.1001 #### [facility] [address] [place], [address] Bilirubin [Mass/Vol] 0.41 mg/dL Normal 0.00-1.30 [facility] Comment on above: Performed By: #### L 500.4050, L100.0100, L500.4100, L503.0106, L506.1001 #### [facility] [address] [place], [address] BUN/CRE 23.5 RATIO High 10-20 [facility] Comment on above: Performed By: #### L 500.4050, L100.0100, L500.4100, L503.0106, L506.1001 #### [facility] [address] [place], [address] Calcium [Mass/Vol] 8.9 mg/dL Normal 7.6-11.0 [facility] Comment on above: Performed By: #### L 500.4050, L100.0100, L500.4100, L503.0106, L506.1001 #### [facility] [address] [place], [address] Chloride [Moles/Vol] 100 mmol/L Normal 98-108 [facility] Comment on above: Performed By: #### L 500.4050, L100.0100, L500.4100, L503.0106, L506.1001 #### [facility] [address] [place], [address] CO2 [Moles/Vol] 23.5 mmol/L Normal 21.0-32.0 [facility] Comment on above: Performed By: #### L 500.4050, L100.0100, L500.4100, L503.0106, L506.1001 #### [facility] [address] [place], [address] Creatinine [Mass/Vol] 0.62 mg/dL Low 0.70-1.20 [facility] Comment on above: Performed By: #### L 500.4050, L100.0100, L500.4100, L503.0106, L506.1001 #### [facility] [address] [place], [address] GAP 15 Normal 5-15 [facility] Comment on above: Performed By: #### L 500.4050, L100.0100, L500.4100, L503.0106, L506.1001 #### [facility] [address] [place], [address] GFR/1.73 sq M.predicted among non-blacks MDRD (S/P/Bld) [Vol rate/Area] 111 mL/min/{1.73_m2} Normal >60 [facility] Comment on above: Result Comment: mL/m in/1.73m2 CKD-EPI Creatinine Equation (2020) Performed By: #### L 500.4050, L100.0100, L500.4100, L503.0106, L506.1001 #### [facility] [address] [place], [address] Globulin (S) [Mass/Vol] 3.2 g/dL Normal 2.2-4.2 [facility] Comment on above: Performed By: #### L 500.4050, L100.0100, L500.4100, L503.0106, L506.1001 #### [facility] [address] [place], [address] Glucose [Mass/Vol] 95 mg/dL Normal 70-99 [facility] Comment on above: Performed By: #### L 500.4050, L100.0100, L500.4100, L503.0106, L506.1001 #### [facility] [address] [place], [address] Potassium [Moles/Vol] 3.5 mmol/L Normal 3.3-5.1 [facility] Comment on above: Performed By: #### L 500.4050, L100.0100, L500.4100, L503.0106, L506.1001 #### [facility] [address] [place], [address] Sodium [Moles/Vol] 139 mmol/L Normal 133-145 [facility] Comment on above: Performed By: #### L 500.4050, L100.0100, L500.4100, L503.0106, L506.1001 #### [facility] [address] [place], [address] T PROT 7.5 g/dL Normal 5.9-8.4 [facility] Comment on above: Performed By: #### L 500.4050, L100.0100, L500.4100, L503.0106, L506.1001 #### [facility] [address] [place], [address] Urea nitrogen [Mass/Vol] 15 mg/dL Normal 4-19 [facility] Comment on above: Performed By: #### L 500.4050, L100.0100, L500.4100, L503.0106, L506.1001 #### [facility] [address] [place], [address] Eosinophil percentageOrdered By: Dai Traylor on 04-07-2025 Eosinophils/100 WBC (Bld) 0.3 % 0-5 [facility] Erythrocyte distribution wid th ratioOrdered By: Dai Traylor on 04-07-2025 Erythrocyte distribution width (RBC) [Ratio] 12.6 % 11.6-14.6 [facility] Erythrocyte distribution wid th standard deviationOrdered By: Dai Traylor on 04-07-2025 Erythrocyte distribution width (RBC) [Ratio] 41.3 fl 35.1-43.9 [facility] Glomerular filtration rate ( GFR) estimation/1.73 sq m using serum, plasma, or whole bOrdered By: Dai Traylor on 04-07-2025 GFR/1.73 sq M.predicted among non-blacks MDRD (S/P/Bld) [Vol rate/Area] 111 mL/min/{1.73_m2} >60 [facility] Comment on above: mL/min/1.73m2 CKD-EP I Creatinine Equation (2020) Hematocrit Auto (Bld) [Volum e fraction]Ordered By: Dai Traylor on 04-07-2025 Hematocrit (Bld) [Volume fraction] 44.7 % 37-47 [facility] Hemoglobin measurementOrdere d By: Dai Traylor on 04-07-2025 Hemoglobin (Bld) [Mass/Vol] 15.0 g/dL 12.0-15.0 [facility] Immature granulocytes/100 WB C Auto (Bld)Ordered By: Dai Traylor on 04-07-2025 Immature granulocytes/100 WBC (Bld) 0.300 % 0.0-0.9 [facility] Comment on above: IG% - Immature Granu locytes (promyelocytes, myelocytes and metamyelocytes) > 1% indicates that a LEFT SHIFT is Present. LDL calc ser/plasOrdered By: Dai Traylor on 04-07-2025 Cholesterol in LDL [Mass/Vol] 109 mg/dL [facility] Comment on above: Gtorafvhuu=118-027 m g/dL & Higher Gtov=445 mg/dL or greater Laboratory - Chemistry and C hemistry - challengeOrdered By: Dai Traylor on 04-07-2025 AST [Catalytic activity/Vol] 29 U/L <32 [facility] Lipid Profileon 04-07-2025 CHOL:HDL 3.96 Normal [facility] Comment on above: Performed By: #### L 500.4050, L100.0100, L500.4100, L503.0106, L506.1001 #### [facility] [address] [place], [address] Cholesterol [Mass/Vol] 187 mg/dL Normal <=200 [facility] Comment on above: Result Comment: Chol esterol level, Desirable <200 mg/dL Borderline high cholesterol 200-239 mg/dL High cholesterol >=240 mg/dL Recommendations of the NCEP Adult Treatment Panel for the following risk-cutoff thresholds for the [place] population. Performed By: #### L 500.4050, L100.0100, L500.4100, L503.0106, L506.1001 #### [facility] [address] [place], [address] Cholesterol in HDL [Mass/Vol] 47 mg/dL Normal [facility] Comment on above: Result Comment: Macie onal Cholesterol Education Program (NCEP) guidelines: <40 mg/dL: Low HDL-cholesterol (major risk factor for CHD) >= 60 mg/dL: High HDL-cholesterol (negative risk factor for CHD) HDL-cholesterol is affected by a number of factors, e.g. smoking, exercise, hormones, sex and age. Performed By: #### L 500.4050, L100.0100, L500.4100, L503.0106, L506.1001 #### [facility] [address] [place], [address] Cholesterol in LDL [Mass/Vol] 109 mg/dL Normal [facility] Comment on above: Result Comment: Bord lbmhhw=986-908 mg/dL Higher Axhr=711 mg/dL or greater Performed By: #### L 500.4050, L100.0100, L500.4100, L503.0106, L506.1001 #### [facility] [address] [place], [address] Cholesterol in VLDL [Mass/Vol] 31 mg/dL Normal 5-40 [facility] Comment on above: Performed By: #### L 500.4050, L100.0100, L500.4100, L503.0106, L506.1001 #### [facility] [address] [place], [address] Triglyceride [Mass/Vol] 153 mg/dL Normal [facility] Comment on above: Result Comment: The drugs N-Acetylcysteine and Metamizole may falsely depress this assay. Normal range: <150 mg/dL Borderline High: 150-199 mg/dL High: 200-499 mg/dL Very High: >500 mg/dL Performed By: #### L 500.4050, L100.0100, L500.4100, L503.0106, L506.1001 #### [facility] [address] [place], [place], [id number] MCV (mean corpuscular volume ) determinationOrdered By: Dai Traylor on 04-07-2025 MCV (RBC) [Entitic vol] 89.8 fL 81-99 [facility] Mean corpuscular hemoglobin (MCH) determinationOrdered By: Dai Traylor on 04-07-2025 MCH (RBC) [Entitic mass] 30.1 pg 27.0-32.0 [facility] Mean corpuscular hemoglobin concentration (MCHC) determinationOrdered By: Dai Traylor on 04-07-2025 MCHC (RBC) [Mass/Vol] 33.6 g/dL 32-36 [facility] Mean platelet volume determi nationOrdered By: Dai Traylor on 04-07-2025 Platelet mean volume (Bld) [Entitic vol] 9.5 fL 6.2-12.0 [facility] Monocyte percentageOrdered B y: Dai Traylor on 04-07-2025 Monocytes/100 WBC (Bld) 5.2 % 0-10 [facility] Neutrophil percentageOrdered By: Dai Traylor on 04-07-2025 Neutrophils/100 WBC (Bld) 68.4 % 47-70 [facility] Nucleated red blood cell per centageOrdered By: Dai Traylor on 04-07-2025 Nucleated RBC/100 WBC (Bld) [Ratio] 0 % 0-5 [facility] Platelet countOrdered By: King levienabhishekgisella Traylor on 04-07-2025 Platelets (Bld) [#/Vol] 319 10*3/uL 150-450 [facility] Potassium measurement (mass/ volume)Ordered By: Dai Traylor on 04-07-2025 Potassium (Unsp spec) [Mass/Vol] 3.5 mmol/L 3.3-5.1 [facility] RBC Auto (Bld) [#/Vol]Ordere d By: Dai Traylor on 04-07-2025 RBC (Bld) [#/Vol] 4.98 10*6/uL 4.2-5.4 [facility] Screening total cholesterol/ high density lipoprotein (HDL) cholesterol ratioOrdered By: Dai Traylor on 04-07-2025 Cholesterol.total/Margaret sterol in HDL [Mass ratio] 3.96 {ratio} [facility] Serum creatinine measurement (mass/volume)Ordered By: Dai Traylor on 04-07-2025 Creatinine [Mass/Vol] 0.62 mg/dL Low 0.70-1.20 [facility] Serum globulin measurementOr dered By: Dai Traylor on 04-07-2025 Globulin (S) [Mass/Vol] 3.2 g/dL 2.2-4.2 [facility] Serum glucose measurement (m ass/volume)Ordered By: Dai Traylor on 04-07-2025 Glucose [Mass/Vol] 95 mg/dL 70-99 [facility] Serum or plasma alanine desai otransferase (ALT) measurementOrdered By: Dai Traylor on 04-07-2025 ALT [Catalytic activity/Vol] 41 U/L High <35 [facility] Serum or plasma albumin amol urement (mass/volume)Ordered By: Dai Traylor on 04-07-2025 Albumin [Mass/Vol] 4.3 g/dL 3.5-5.0 [facility] Serum or plasma albumin/glob ulin mass ratioOrdered By: Dai Traylor on 04-07-2025 Albumin/Globulin [Mass ratio] 1.3 {ratio} 0.9-2.4 [facility] Serum or plasma alkaline marielle sphatase measurementOrdered By: Dai Traylor on 04-07-2025 ALP [Catalytic activity/Vol] 90 U/L 35-104 [facility] Serum or plasma calcium amol urement (mass/volume)Ordered By: Dai Traylor on 04-07-2025 Calcium [Mass/Vol] 8.9 mg/dL 7.6-11.0 [facility] Serum or plasma cholesterol in HDL measurement (mass/volume)Ordered By: Dai Traylor on 04-07-2025 Cholesterol in HDL [Mass/Vol] 47 mg/dL >40 [facility] Comment on above: National Cholesterol Education Program (NCEP) guidelines:<40 mg/dL: Low HDL-cholesterol (major risk factor for CHD)>= 60 mg/dL: High HDL-cholesterol (negative risk factor for CHD)HDL-cholesterol is affected by a number of factors, e.g. smoking, exercise, hormones, sex and age. Serum or plasma cholesterol measurement (mass/volume)Ordered By: Dai Traylor on 04-07-2025 Cholesterol [Mass/Vol] 187 mg/dL <201 [facility] Comment on above: Cholesterol level, D esirable <200 mg/dLBorderline high cholesterol 200-239 mg/dLHigh cholesterol >=240 mg/dLRecommendations of the NCEP Adult Treatment Panel for the following risk-cutoff thresholds for the [place] population. Serum or plasma urea nitroge n measurement (mass/volume)Ordered By: Dai Traylor on 04-07-2025 Urea nitrogen [Mass/Vol] 15 mg/dL 4-19 [facility] Sodium levelOrdered By: Edilma Traylor on 04-07-2025 Sodium [Moles/Vol] 139 mmol/L 133-145 [facility] Total proteinOrdered By: Heavenly Traylor on 04-07-2025 Protein [Mass/Vol] 7.5 g/dL 5.9-8.4 [facility] Triglycerides measurementOrd ered By: Dai Traylor on 04-07-2025 Triglyceride [Mass/Vol] 153 mg/dL <199 [facility] Comment on above: The drugs N-Acetylcy steine and Metamizole may falsely depress this assay. Normal range: <150 mg/dLBorderline High: 150-199 mg/dLHigh: 200-499 mg/dLVery High: >500 mg/dL Vitamin B12on 04-07-2025 Cobalamin (Vitamin B12) [Mass/Vol] 546 pg/mL Normal 180-914 [facility] Comment on above: Performed By: #### L 500.4050, L100.0100, L500.4100, L503.0106, L506.1001 #### [facility] [address] [place], [address] Vitamin B12 ser/plasOrdered By: Dai Traylor on 04-07-2025 Cobalamin (Vitamin B12) [Mass/Vol] 546 pg/mL 180-914 [facility] Vitamin D,25 Hydroxyon 04-07 Vitamin D 25-OH 39.9 ng/mL Normal 30-100 [facility] Comment on above: Result Comment: Julieth min D Status Deficiency: <20 ng/mL (50nmol/L) Insufficiency: 20-30 ng/mL (50-75 nmol/L) Sufficiency: 30-100 ng/mL (75-250 nmol/L) Toxicity: >100 ng/mL (>250 nmol/L) Performed By: #### L 500.4050, L100.0100, L500.4100, L503.0106, L506.1001 #### [facility] [address] [place], [place], [id number] White blood cell (WBC) count Ordered By: Dai Traylor on 04-07-2025 WBC (Bld) [#/Vol] 12.3 10*3/uL High 4.4-11.0 [facility] TSH (THYROID STIMULATING HOR BRANDON) ([id number])Ordered By: [employer]tered [employer] Executive Director on 07-20-2023 TSH Qn 4.970 {uIU/mL} Abnormal 0.450-4.500 [facility]; [facility] Work Phone: Comment on above: recheck 6-8 wks; ANA IENT WAS FASTINGPERFORMED BY: TOÑA [employer] [id number] [facility] [id number] FREE TRIIDOTHYRONINE (T3) ([id number])Ordered By: [employer] Executive Director on 05-25-2023 Free T3 [Mass/Vol] 2.4 pg/mL Normal 2.0-4.4 [facility] Internal Medicine; [facility] Work Phone: Comment on above: PATIENT NOT FASTINGP ERFORMED BY: [employer] [id number] [facility] [id number] T4, FREE (THYROXINE) ([id number]) Ordered By: Sheltered [employer] Executive Director on 05-25-2023 Free T4 [Mass/Vol] 1.63 ng/dL Normal 0.82-1.77 [facility] Internal Medicine; [facility] Work Phone: Comment on above: PATIENT NOT FASTINGP ERFORMED BY: [employer] [facility] [id number] TSH (THYROID STIMULATING HOR BRANDON) ([id number])Ordered By: Sheltered [employer] Executive Director on 05-25-2023 TSH Qn 9.800 {uIU/mL} Abnormal 0.450-4.500 [facility] Internal Medicine; [facility] Work Phone: Comment on above: PATIENT NOT FASTINGP ERFORMED BY: [employer] [id number] [facility] [id number] Anti TPO Antibody ([id number])Ord ered By: Sheltered [employer] Executive Director on 03-23-2023 TPO Ab Qn 30 [IU]/mL Normal 0-34 [facility]; [facility] Work Phone: Comment on above: PATIENT WAS FASTINGP ERFORMED BY: [employer] [id number] [facility] [id number] LIPID PANEL ([id number])Ordered B y: Sheltered [employer] Executive Director on 03-23-2023 Cholesterol [Mass/Vol] 189 mg/dL Normal 100-199 [facility]; [facility] Work Phone: Comment on above: PATIENT WAS FASTINGP ERFORMED BY: TOÑA [facility] Hgprpj1838 [address] RoadDublin [place] [id number] Cholesterol in HDL [Mass/Vol] 58 mg/dL Normal [facility]; [facility] Work Phone: Comment on above: PATIENT WAS FASTINGP ERFORMED BY: TOÑA [facility] Vpqmgt1779 [address] RoadDublin [place] [id number] Triglyceride [Mass/Vol] 125 mg/dL Normal 0-149 [facility]; [facility] Work Phone: Comment on above: PATIENT WAS FASTINGP ERFORMED BY: TOÑA [facility] Wssgfv0964 [address] RoadDublin [place] [id number] LIPID PANEL (47754) 22 mg/dL Normal 5-40 [facility]; [facility] Work Phone: Comment on above: PATIENT WAS FASTINGP ERFORMED BY: TOÑA [facility] Rorawo5870 [address] RoadDublin [place] [id number] LIPID PANEL ([id number]) 109 mg/dL Abnormal 0-99 [facility] Internal Medicine; [facility] Work Phone: Comment on above: PATIENT WAS FASTINGP ERFORMED BY: TOÑA [facility] [id number] [address] [facility] HospitalDublin [place] [id number] LIPID PANEL (14695) 1.9 {ratio} Normal 0.0-3.2 [facility]; [facility] Work Phone: Comment on above: LDL/HDL Ratio Men Wo men 1/2 Avg.Risk 1.0 1.5 Avg.Risk 3.6 3.2 2X Avg.Risk 6.2 5.0 3X Avg.Risk 8.0 6.1 PATIENT WAS FASTINGP ERFORMED BY: CB [facility] Lzarjk3515 [address] RoadDublin [place] [id number] T3, FREE (TRIDOTHYRONINE) (1 0751)Ordered By: Sheltered [employer] Executive Director on 03-23-2023 Free T3 [Mass/Vol] 2.5 pg/mL Normal 2.0-4.4 [facility] Internal Medicine; [facility] Work Phone: Comment on above: PATIENT WAS FASTINGP ERFORMED BY: [facility] Yxgrhp1201 [address] RoadDublin [place] [id number] T4, FREE (THYROXINE) ([id number]) Ordered By: Sheltered [employer] Executive Director on 03-23-2023 Free T4 [Mass/Vol] 1.66 ng/dL Normal 0.82-1.77 [facility] Internal Medicine; [facility] Work Phone: Comment on above: PATIENT WAS FASTINGP ERFORMED BY: [facility] [id number] [address] RoadDublin [place] [id number] TSH ([id number])Ordered By: [employer] Product Analyst on 03-23-2023 TSH Qn 7.980 {uIU/mL} Abnormal 0.450-4.500 [facility] Internal Medicine; [facility] Work Phone: Comment on above: PATIENT WAS FASTINGP ERFORMED BY: [employer] Annzls1718 [address] RoadDublin [place] [id number] T3, FREE (TRIDOTHYRONINE) (8 4551)Ordered By: Sheltered [employer] Executive Director on 08-29-2022 Free T3 [Mass/Vol] 3.0 pg/mL Normal 2.0-4.4 [facility] Internal Medicine; [facility] Work Phone: Comment on above: do in sep 2022; KIMBERLY ENT NOT FASTINGPERFORMED BY: TOÑA [facility] Sklnvf5638 [address] RoadDublin [place] [id number] T4, FREE (THYROXINE) ([id number]) Ordered By: Sheltered [employer] Executive Director on 08-29-2022 Free T4 [Mass/Vol] 1.88 ng/dL Abnormal 0.82-1.77 [facility] Internal Medicine; [facility] Work Phone: Comment on above: PATIENT NOT FASTINGP ERFORMED BY: [facility] Thnlpf7189 [address] RoadDublin [place] [id number] TSH ([id number])Ordered By: [employer] Product Analyst on 08-29-2022 TSH Qn 0.949 {uIU/mL} Normal 0.450-4.500 [facility] Internal Medicine; [facility] Work Phone: Comment on above: do in sep 2022; KIMBERLY ENT NOT FASTINGPERFORMED BY: [facility] Gvamlh7451 [address] [facility]in [place] [id number] T4, FREE (THYROXINE) ([id number]) Ordered By: Sheltered [employer] Executive Director on 03-10-2022 Free T4 [Mass/Vol] 2.07 ng/dL Abnormal 0.82-1.77 [facility] Internal Medicine; [facility] Work Phone: Comment on above: PATIENT NOT FASTINGP ERFORMED BY: CB [facility] Xhiaox1290 [address]bl[address] [place] [id number] TSH (THYROID STIMULATING HOR BRANDON) ([id number])Ordered By: Sheltered [employer] Executive Director on 03-10-2022 TSH Qn 2.860 {uIU/mL} Normal 0.450-4.500 [facility] Internal Medicine; [facility] Internal Medicine Work Phone: Comment on above: PATIENT NOT FASTINGP ERFORMED BY: [employer] Hqllxk7873 [address] [facility]in [place] [id number] T4, FREE (THYROXINE) ([id number]) Ordered By: Sheltered Workshop Executive Director on 12-06-2021 Free T4 [Mass/Vol] 1.95 ng/dL Abnormal 0.82-1.77 [facility] Internal [facility]; [facility] Work Phone: Comment on above: PATIENT NOT FASTINGP ERFORMED BY: [employer] Jphieq2126 [address] [facility]in [place] [id number] TSH (THYROID STIMULATING HOR BRANDON) ([id number])Ordered By: Sheltered [employer] Executive Director on 12-06-2021 TSH Qn 1.950 {uIU/mL} Normal 0.450-4.500 [facility] Internal Medicine; [facility] Work Phone: Comment on above: PATIENT NOT FASTINGP ERFORMED BY: [facility] Cxtwjr9414 [address] [facility] Centerblin [place] [id number] T3, FREE (TRIDOTHYRONINE) (4 [id number])Ordered By: Sheltered Workshop Executive Director on 10-12-2021 Free T3 [Mass/Vol] 2.2 pg/mL Normal 2.0-4.4 [facility] Internal [facility]; [facility] Work Phone: Comment on above: PATIENT NOT FASTINGP ERFORMED BY: [employer] Zcayqv7967 [address] [facility]in [place] [id number] T4, FREE (THYROXINE) ([id number]) Ordered By: Sheltered Workshop Executive Director on 10-12-2021 Free T4 [Mass/Vol] 1.60 ng/dL Normal 0.82-1.77 [facility] Internal Medicine; [facility] Internal Medicine Work Phone: Comment on above: PATIENT NOT FASTINGP ERFORMED BY: [employer] Bsxxoz2358 [address] [facility]in [place] [id number] TSH ([id number])Ordered By: Mosoropat[employer] m [employer] Product Analyst on 10-12-2021 TSH Qn 11.700 {uIU/mL} Abnormal 0.450-4.500 [facility] Internal Medicine; [facility] Work Phone: Comment on above: PATIENT NOT FASTINGP ERFORMED BY: [employer] Owitjb3468 [facility] [id number] Anti TPO Antibody ([id number])Ord ered By: Sheltered Workshop Executive Director on 09-19-2021 TPO Ab Qn 30 [IU]/mL Normal 0-34 [facility]; [facility] Work Phone: Comment on above: PATIENT NOT FASTINGP ERFORMED BY: [employer] Bwbeca1212 [facility]in [place] [id number] T3, FREE (TRIDOTHYRONINE) (8 [id number])Ordered By: Sheltered Workshop Executive Director on 09-19-2021 Free T3 [Mass/Vol] 2.7 pg/mL Normal 2.0-4.4 [facility]; [facility] Work Phone: Comment on above: PATIENT NOT FASTINGP ERFORMED BY: LabSmashrun Uopdvr5354 [address] [facility]in [place] [id number] T4, FREE (THYROXINE) ([id number]) Ordered By: Sheltered Workshop Executive Director on 09-19-2021 Free T4 [Mass/Vol] 1.51 ng/dL Normal 0.82-1.77 [facility] Internal Medicine; [facility] Internal Medicine Work Phone: Comment on above: PATIENT NOT FASTINGP ERFORMED BY: Pathfire[address] Simply Hiredblin [place] [id number] TSH ([id number])Ordered By: Mosoropatrick m [employer] Product Analyst on 09-19-2021 TSH Qn 8.270 {uIU/mL} Abnormal 0.450-4.500 [facility] Internal Medicine; [facility] Work Phone: Comment on above: PATIENT NOT FASTINGP ERFORMED BY: Pathfire[address] [place] Feixiang[employer] Information TechnologyDublin [place] [id number] T3, FREE (TRIDOTHYRONINE) (3 [id number])Ordered By: Sheltered Workshop Executive Director on 02-21-2021 Free T3 [Mass/Vol] 2.0 pg/mL Normal 2.0-4.4 [facility] Internal [facility]; [facility] Work Phone: Comment on above: PERFORMED BY: [employer]6370 LBE Security Masterblin [place] [id number] T4, FREE (THYROXINE) ([id number]) Ordered By: Sheltered Workshop Executive Director on 02-21-2021 Free T4 [Mass/Vol] 1.50 ng/dL Normal 0.82-1.77 [facility] Internal [facility]; [facility] Work Phone: Comment on above: PERFORMED BY: [employer]6370 [employer] Masterblin [place] [id number] TSH (THYROID STIMULATING HOR BRANDON) ([id number])Ordered By: Sheltered Workshop Executive Director on 02-21-2021 TSH Qn 3.640 {uIU/mL} Normal 0.450-4.500 [facility] Internal Medicine; [facility] Work Phone: Comment on above: PERFORMED BY: [employer] Jnubbt9493 [employer] [employer] Masterblin [place] [id number]; ov 02/24 T3, FREE (TRIDOTHYRONINE) (7 [id number])Ordered By: Sheltered Workshop Executive Director on 11-23-2020 Free T3 [Mass/Vol] 2.5 pg/mL Normal 2.0-4.4 [facility] Internal [facility]; [facility] Work Phone: Comment on above: PATIENT NOT FASTINGP ERFORMED BY: [employer] Pjalrz3994 [address] [facility]in [place] [id number] T4, FREE (THYROXINE) ([id number]) Ordered By: Sheltered Workshop Executive Director on 11-23-2020 Free T4 [Mass/Vol] 1.92 ng/dL Abnormal 0.82-1.77 [facility] Internal Medicine; [facility] Internal Medicine Work Phone: Comment on above: PATIENT NOT FASTINGP ERFORMED BY: [facility] Jpcpob2103 [address] [facility] [id number] TSH (THYROID STIMULATING HOR BRANDON) ([id number])Ordered By: Sheltered Workshop Executive Director on 11-23-2020 TSH Qn 2.500 {uIU/mL} Normal 0.450-4.500 [facility] Internal Medicine; [facility] Internal Medicine Work Phone: Comment on above: PATIENT NOT FASTINGP ERFORMED BY: LabSaint John'S Health SystemBuxall9761 [address] [facility] [id number] TSH ([id number])Ordered By: Sy[employer] Product Analyst on 09-21-2020 TSH Qn 0.236 {uIU/mL} Abnormal 0.450-4.500 [facility] Internal Medicine Work Phone: Comment on above: 6-8 weeks; PATIENT N OT FASTINGPERFORMED BY: TOÑA [facility] Pnxpri8010 [facility] [id number] T3, FREE (TRIDOTHYRONINE) (5 [id number])Ordered By: Sheltered Workshop Executive Director on 07-20-2020 Free T3 [Mass/Vol] 3.6 pg/mL Normal 2.0-4.4 [facility] Internal Medicine Work Phone: Comment on above: PATIENT NOT FASTINGP ERFORMED BY: [facility] Szymyj9727 [address] [facility]in [place] [id number] T4, FREE (THYROXINE) ([id number]) Ordered By: Sheltered Workshop Executive Director on 07-20-2020 Free T4 [Mass/Vol] 1.56 ng/dL Normal 0.82-1.77 [facility] Internal Medicine Work Phone: Comment on above: PATIENT NOT FASTINGP ERFORMED BY: TOÑA [facility] Cnutsw7218 [address] [facility]in [place] [id number] TSH ([id number])Ordered By: Sy[employer] Product Analyst on 07-20-2020 TSH Qn 0.070 {uIU/mL} Abnormal 0.450-4.500 [facility] Internal Medicine Work Phone: Comment on above: PATIENT NOT FASTINGP ERFORMED BY: TOÑA LabJeffreydayne WorthyNqrykv8825 [address] [facility]in [place] [id number] LIPID PANEL ([id number])Ordered B y: Sheltered Workshop Executive Director on 05-28-2020 Cholesterol [Mass/Vol] 152 mg/dL Normal 100-199 [facility] Internal Medicine Work Phone: Comment on above: PATIENT WAS FASTINGP ERFORMED BY: TOÑA LabTrisha WorthyHsbhvq1217 [address] [facility]in [place] [id number] Cholesterol in HDL [Mass/Vol] 48 mg/dL Normal [facility] Work Phone: Comment on above: PATIENT WAS FASTINGP ERFORMED BY: TOÑA LabTrisha WorthyOvjjdk4517 [facility] [id number] Cholesterol in LDL [Mass/Vol] 87 mg/dL Normal 0-99 [facility] Work Phone: Comment on above: PATIENT WAS FASTINGP ERFORMED BY: TOÑA LabTrisha WorthyXsqbjd7110 [facility] [id number] Cholesterol in LDL/Cholesterol in HDL [Mass ratio] 1.8 {ratio} Normal 0.0-3.2 [facility] Work Phone: Comment on above: LDL/HDL Ratio Men Wo men 1/2 Avg.Risk 1.0 1.5 Avg.Risk 3.6 3.2 2X Avg.Risk 6.2 5.0 3X Avg.Risk 8.0 6.1 PATIENT WAS FASTINGP ERFORMED BY: TOÑA LabCodayne Cndvrd3547 [address] [facility]in [place] [id number] Cholesterol in VLDL [Mass/Vol] 17 mg/dL Normal 5-40 [facility] Work Phone: Comment on above: PATIENT WAS FASTINGP ERFORMED BY: TOÑA [facility] Zweedu7091 [address] [facility] [place] [id number] Triglyceride [Mass/Vol] 85 mg/dL Normal 0-149 [facility] Work Phone: Comment on above: PATIENT WAS FASTINGP ERFORMED BY: TOÑA [facility] Gusvbt1922 [address] RoadDublin [place] [id number] TSH (THYROID STIMULATING HOR BRANDON) ([id number])Ordered By: Sheltered Workshop Executive Director on 02-20-2020 TSH Qn 0.785 {uIU/mL} Normal 0.450-4.500 [facility] Internal Medicine Work Phone: Comment on above: PATIENT NOT FASTINGP ERFORMED BY: TOÑA [facility] Igydqf7205 [address] [facility] [place] [id number] T4, FREE (THYROXINE) ([id number]) Ordered By: Sheltered Workshop Executive Director on 01-12-2020 Free T4 [Mass/Vol] 1.73 ng/dL Normal 0.82-1.77 [facility] Internal Medicine Work Phone: Comment on above: PATIENT NOT FASTINGP ERFORMED BY: TOÑA [facility] Igsomf2347 [facility] [id number] TSH ([id number])Ordered By: [employer] Product Analyst on 01-12-2020 TSH Qn 0.041 {uIU/mL} Abnormal 0.450-4.500 [facility] Internal Medicine Work Phone: Comment on above: PATIENT NOT FASTINGP ERFORMED BY: TOÑA [facility] Arrjdy8966 [facility] [id number] Anti TPO Antibody ([id number])Ord ered By: Sheltered Workshop Executive Director on 09-29-2019 TPO Ab Qn 47 {IU/mL} Abnormal 0-34 [facility] Work Phone: Comment on above: PATIENT NOT FASTINGP ERFORMED BY: TOÑA [facility] Rnoypd5098 [address] Roadbl[address] [place] [id number] TPO Ab Qn 47 [IU]/mL Abnormal 0-34 [facility]; [facility] Work Phone: Comment on above: PATIENT NOT FASTINGP ERFORMED BY: TOÑA [facility] Shrqsh9273 [address] [facility] [place] [id number] T3, FREE (TRIDOTHYRONINE) ([id number])Ordered By: Sheltered Workshop Executive Director on 09-29-2019 Free T3 [Mass/Vol] 2.4 pg/mL Normal 2.0-4.4 [facility] Internal Medicine Work Phone: Comment on above: PATIENT NOT FASTINGP ERFORMED BY: [facility] Orxboi6126 [facility] [id number] T4, FREE (THYROXINE) ([id number]) Ordered By: Sheltered Workshop Executive Director on 09-29-2019 Free T4 [Mass/Vol] 1.46 ng/dL Normal 0.82-1.77 [facility] Internal Medicine Work Phone: Comment on above: PATIENT NOT FASTINGP ERFORMED BY: TOÑA [facility] Lnjarc6205 [facility] [id number] TSH ([id number])Ordered By: [employer] Product Analyst on 09-29-2019 TSH Qn 12.850 {uIU/mL} Abnormal 0.450-4.500 [facility] Internal Medicine Work Phone: Comment on above: PATIENT NOT FASTINGP ERFORMED BY: [facility] Dxsmvt6770 [facility] [id number] Vital Signs Date Time Vital Sign Value Performing Clinician Facility 03-23-2023 11:48-0400 Body height 154.94 cm [facility]; [facility] Work Phone: 03-23-2023 11:48-0400 Body mass index (BMI) [Ratio] 34.96 kg/m2 [facility]; [facility] Work Phone: 03-23-2023 11:48-0400 Body surface area Derived from formula 1.83 m2 [facility]; [facility] Work Phone: 03-23-2023 11:48-0400 Body temperature 97.5 [degF] [facility]; [facility] Work Phone: Comment on above: Method: Thermal Scan 03-23-2023 11:48-0400 Body weight 83.92 kg Nimisha Sam [facility]; [facility] Work Phone: 03-23-2023 11:48-0400 Diastolic blood pressure 70 mm[Hg] Nimisha Sam [facility]; [facility] Work Phone: Comment on above: Patient Position: Sitting; Cuff Location : Left Arm; Cuff Size: Standard 03-23-2023 11:48-0400 Heart rate 58 /min [facility]; [facility] Work Phone: Comment on above: Pattern: Regular 03-23-2023 11:48-0400 Respiratory rate 16 /min [facility]; [facility] Work Phone: Comment on above: Pattern: Unlabored 03-23-2023 11:48-0400 SaO2% (BldA) [Mass fraction] 99 % [facility]; [facility] Work Phone: Comment on above: Room air 03-23-2023 11:48-0400 Systolic blood pressure 118 mm[Hg] [facility]; [facility] Work Phone: Comment on above: Patient Position: Sitting; Cuff Location : Left Arm; Cuff Size: Standard 10-25-2022 13:19-0500 [facility]; [facility] Work Phone: 10-25-2022 13:19-0500 Body mass index (BMI) [Ratio] 31.18 kg/m2 [facility]; [facility] Work Phone: 10-25-2022 13:19-0500 Body surface area Derived from formula 1.74 m2 [facility]; [facility] Work Phone: 10-25-2022 13:19-0500 Body temperature 97.7 [degF] [facility] Comprehensiv e Internal Medicine; [facility] Work Phone: 10-25-2022 13:19-0500 Body weight 74.84 kg [facility]; [facility] Work Phone: 10-25-2022 13:19-0500 Diastolic blood pressure 80 mm[Hg] [facility]; [facility] Work Phone: Comment on above: Patient Position: Sitting; Cuff Location : Left Arm; Cuff Size: Standard 10-25-2022 13:19-0500 Heart rate 63 /min [facility]kes[facility] CastJonathonPresentation Medical Center [facility]; [facility] Work Phone: Comment on above: Pattern: Regular 10-25-2022 13:19-0500 Respiratory rate 16 /min [facility] Comprehens[facility] e Internal [facility]; [facility] Work Phone: Comment on above: Pattern: Unlabored 10-25-2022 13:19-0500 SaO2% (BldA) [Mass fraction] 99 % [facility]; [facility] Work Phone: Comment on above: Room air 10-25-2022 13:19-0500 Systolic blood pressure 138 mm[Hg] [facility]; [facility] Work Phone: Comment on above: Patient Position: Sitting; Cuff Location : Left Arm; Cuff Size: Standard 03-17-2022 07:53-0400 Body height 154.94 cm Shelby [facility]; [facility] Work Phone: 03-17-2022 07:53-0400 Body mass index (BMI) [Ratio] 31.18 kg/m2 Shelby [facility]; [facility] Work Phone: 03-17-2022 07:53-0400 Body surface area Derived from formula 1.74 m2 Shelby [facility]; [facility] Work Phone: 03-17-2022 07:53-0400 Body temperature 97.3 [degF] Shelby Chiang CMA [facility]; [facility] Work Phone: Comment on above: Method: Infrared 03-17-2022 07:53-0400 Body weight 74.84 kg Shelby Chiang CMA [facility]; [facility] Work Phone: 03-17-2022 07:53-0400 Diastolic blood pressure 80 mm[Hg] Shelby Chiang CMA [facility]; [facility] Work Phone: Comment on above: Patient Position: Sitting; Cuff Location : Left Arm; Cuff Size: Standard 03-17-2022 07:53-0400 Heart rate 66 /min Shelby Chiang CMA [facility]; [facility] Work Phone: Comment on above: Pattern: Regular 03-17-2022 07:53-0400 Respiratory rate 16 /min Shelby Chiang CMA [facility]; [facility] Work Phone: Comment on above: Pattern: Unlabored 03-17-2022 07:53-0400 SaO2% (BldA) [Mass fraction] 99 % Shelby Chiang [facility]; [facility] Work Phone: Comment on above: Room air 03-17-2022 07:53-0400 Systolic blood pressure 122 mm[Hg] Shelby Chiang [employer]IEF DEPUTY [facility]; [facility] Work Phone: Comment on above: Patient Position: Sitting; Cuff Location : Left Arm; Cuff Size: Standard 10-12-2021 13:58-0500 Body height 154.94 cm Dai Fariaon DO Work Phone: [facility]; [facility] Work Phone: 10-12-2021 13:58-0500 Body mass index (BMI) [Ratio] 29.29 kg/m2 Dai Kymberly DO Work Phone: [facility]; [facility] Work Phone: 10-12-2021 13:58-0500 Body surface area Derived from formula 1.7 m2 Dai Fariaon DO Work Phone: [facility]; [facility] Work Phone: 10-12-2021 13:58-0500 Body temperature 97 [degF] Dai Traylor DO Work Phone: [facility]; [facility] Work Phone: Comment on above: Method: Infrared 10-12-2021 13:58-0500 Body weight 70.31 kg Dai Traylor DO Work Phone: [facility]; [facility] Work Phone: 10-12-2021 13:58-0500 Diastolic blood pressure 78 mm[Hg] Dai Traylor DO Work Phone: [facility]; [facility] Work Phone: Comment on above: Patient Position: Sitting; Cuff Location : Left Arm; Cuff Size: Standard 10-12-2021 13:58-0500 Heart rate 66 /min Dai Traylor DO Work Phone: [facility]; [facility] Work Phone: Comment on above: Pattern: Regular 10-12-2021 13:58-0500 Respiratory rate 16 /min Dai Traylor DO Work Phone: [facility]; [facility] Work Phone: Comment on above: Pattern: Unlabored 10-12-2021 13:58-0500 SaO2% (BldA) [Mass fraction] 99 % Dai Traylor DO Work Phone: [facility]; [facility] Work Phone: Comment on above: Room air 10-12-2021 13:58-0500 Systolic blood pressure 118 mm[Hg] Dai Traylor DO Work Phone: [facility]; [facility] Work Phone: Comment on above: Patient Position: Sitting; Cuff Location : Left Arm; Cuff Size: Standard 02-24-2021 07:48-0400 Body height 154.94 cm [facility]; [facility] Work Phone: 02-24-2021 07:48-0400 Body mass index (BMI) [Ratio] 27.59 kg/m2 [facility]; [facility] Work Phone: 02-24-2021 07:48-0400 Body surface area Derived from formula 1.65 m2 [facility]; [facility] Work Phone: 02-24-2021 07:48-0400 Body temperature 97.2 [degF] [facility]; [facility] Work Phone: Comment on above: Method: Thermal Scan 02-24-2021 07:48-0400 Body weight 66.23 kg [facility]; [facility] Work Phone: 02-24-2021 07:48-0400 Diastolic blood pressure 68 mm[Hg] [facility]; [facility] Work Phone: Comment on above: Patient Position: Sitting; Cuff Location : Left Arm; Cuff Size: Standard 02-24-2021 07:48-0400 Heart rate 67 /min [facility]; [facility] Work Phone: Comment on above: Pattern: Regular 02-24-2021 07:48-0400 Respiratory rate 16 /min [facility]; [facility] Work Phone: Comment on above: Pattern: Unlabored 02-24-2021 07:48-0400 SaO2% (BldA) [Mass fraction] 98 % [facility]; [facility] Work Phone: Comment on above: Room air 02-24-2021 07:48-0400 Systolic blood pressure 124 mm[Hg] [facility]; [facility] Work Phone: Comment on above: Patient Position: Sitting; Cuff Location : Left Arm; Cuff Size: Standard 03-29-2020 14:59-0400 BMI (Body Mass Index) 33.07 kg/m2 Shelby [facility] Work Phone: 03-29-2020 14:59-0400 Body Temperature 97.2 [degF] Shelby Chiang CMA [facility] Work Phone: Comment on above: Method: Temporal 03-29-2020 14:59-0400 Body weight 79.38 kg Shelby Chiang [employer]IEF DEPUTY [facility] Work Phone: 03-29-2020 14:59-0400 BP Diastolic 74 mm[Hg] Shelby Chiang CHIEF DEPUTY [facility] Work Phone: Comment on above: Patient Position: Sitting; Cuff Location : Left Arm; Cuff Size: Standard 03-29-2020 14:59-0400 BP Systolic 120 mm[Hg] Shelby Chiang [facility] Work Phone: Comment on above: Patient Position: Sitting; Cuff Location : Left Arm; Cuff Size: Standard 03-29-2020 14:59-0400 BSA (Body Surface Area) 1.79 m2 Shelby Chiang [facility] Work Phone: 03-29-2020 14:59-0400 Height 154.94 cm Shelby Chiang [facility] Work Phone: 03-29-2020 14:59-0400 Pulse (Heart Rate) 58 /min Shelby Chiang CMA [facility] Work Phone: Comment on above: Pattern: Regular 03-29-2020 14:59-0400 Pulse Oximetry 98 % Dai Traylor [facility] Work Phone: Comment on above: Room air 03-29-2020 14:59-0400 Respiratory Rate 16 /min Shelby Chiang CMA [facility] Work Phone: Comment on above: Pattern: Unlabored 03-29-2020 14:59-0400 SaO2% (BldA) [Mass fraction] 98 % Shelby Chiang [facility]; [facility] Work Phone: Comment on above: Room air 09-29-2019 14:21-0500 BMI (Body Mass Index) 35.52 kg/m2 Lelo Barbour RN [facility] Work Phone: 09-29-2019 14:21-0500 Body Temperature 97.6 [degF] Lelo Barbour RN [facility] Work Phone: Comment on above: Method: Temporal 09-29-2019 14:21-0500 Body weight 85.28 kg Lelo Barbour RN [facility] Work Phone: 09-29-2019 14:21-0500 BP Diastolic 80 mm[Hg] Lelo Barbour RN [facility] Work Phone: Comment on above: Patient Position: Sitting; Cuff Location : Left Arm; Cuff Size: Standard 09-29-2019 14:21-0500 BP Systolic 124 mm[Hg] Lelo Barbour RN [facility] Work Phone: Comment on above: Patient Position: Sitting; Cuff Location : Left Arm; Cuff Size: Standard 09-29-2019 14:21-0500 BSA (Body Surface Area) 1.84 m2 Lelo Barbour RN [facility] Work Phone: 09-29-2019 14:21-0500 Height 154.94 cm Lelo Barbour RN [facility] Work Phone: 09-29-2019 14:21-0500 Pulse (Heart Rate) 81 /min Lelo Barbour RN [facility] Work Phone: Comment on above: Pattern: Regular 09-29-2019 14:21-0500 Pulse Oximetry 96 % Dai Traylor [facility] Work Phone: Comment on above: Room air 09-29-2019 14:21-0500 Respiratory Rate 18 /min Lelo Barbour RN [facility] Work Phone: Comment on above: Pattern: Unlabored 09-29-2019 14:21-0500 SaO2% (BldA) [Mass fraction] 96 % Lelo Barbour RN [facility]; [facility] Work Phone: Comment on above: Room air Encounters Encounter Date Encounter Type Care Provider Facility Start: 05-28-2025 ambulatory Dai Traylor Facilit y:[facility] Start: 05-25-2025 End: 05-25-[address] Dai Traylor DO Work Phone: -[facility] [place] Start: 05-25-2025 End: 05-25-[address] Dai Traylor DO -[facility] [place] Work Phone: Start: 05-25-2025 End: 05-25-2025 ambulatory Dai Traylor Facility:[facility] Start: 05-11-2025 End: 05-11-[address] Dai Traylor DO Work Phone: -[facility] [place] Start: 05-11-2025 End: 05-11-[address] Dai Traylor DO -[facility] [place] Work Phone: Start: 05-11-2025 End: 05-11-2025 ambulatory Dai Traylor Facility:[facility] Start: 04-14-2025 End: 04-14-[address] Dai Traylor DO Work Phone: [facility] Work Phone: Start: 04-14-2025 End: 04-14-[address] Dai Traylor DO -[facility] Work Phone: Start: 04-14-2025 End: 04-14-2025 ambulatory Dai Traylor Facility:[facility] Start: 04-07-2025 End: 04-07-[address] Dai Traylor DO Work Phone: [facility] Work Phone: Start: 04-07-2025 End: 04-07-[address] Dai Traylor DO -[facility] [place] Work Phone: Start: 04-07-2025 End: 04-07-2025 ambulatory Dai Traylor Facility:[facility] Start: 07-23-2023 End: 07-23-2023 Lab Order Dai Traylor DO Work Phone: [facility] Start: 05-28-2023 End: 05-28-2023 Phone Encounter Dai Kymberly DO Work Phone: [facility] Start: 03-26-2023 End: 03-26-2023 Annotation/Addendum Dai Kymberly DO Work Phone: [facility] Start: 03-23-2023 Review Dai Fariao n DO Work Phone: [facility] Start: 03-23-2023 End: 03-23-2023 Office outpatient visit 15 minutes Dai Kymberly DO Work Phone: [facility] Start: 03-12-2023 ambulatory Dai Kymberly DO [facility] Start: 10-25-2022 End: 10-25-2022 Office outpatient visit 15 minutes Dai Kymberly DO Work Phone: [facility] Start: 03-17-2022 End: 03-17-2022 Office outpatient visit 15 minutes Dai Kymberly DO Work Phone: [facility] Start: 12-07-2021 End: 12-07-2021 Phone Encounter Dai Kymbelry DO Work Phone: [facility] Start: 10-13-2021 End: 10-13-2021 Annotation/Addendum Dai Kymberly DO Work Phone: [facility] Start: 10-12-2021 End: 10-12-2021 Office outpatient visit 15 minutes Dai Kymberly DO Work Phone: [facility] Start: 02-24-2021 End: 02-24-2021 Office outpatient visit 10 minutes Dai Kymberly DO Work Phone: [facility] Start: 11-24-2020 End: 11-24-2020 Phone Encounter Dai Kymberly [facility] [employer] [facility] [facility] Start: 09-22-2020 End: 09-22-2020 Phone Encounter Dai Kymberly [facility] [facility] Start: 07-29-2020 End: 07-29-2020 Prescription Refill Dai Traylor [facility] [employer] [facility] Start: 05-31-2020 End: 05-31-2020 Phone Encounter Dai Kymberly [facility] [employer] [facility] [facility] Start: 05-27-2020 End: 05-27-2020 Phone Encounter Dai Traylor [facility] [employer] [facility] Start: 03-29-2020 End: 03-29-2020 Office outpatient visit 15 minutes Dai Fariaon [facility] Start: 01-14-2020 End: 01-14-2020 Annotation/Addendum Dai Traylor [facility] [employer] [facility] [facility] Start: 11-17-2019 End: 11-17-2019 Phone Encounter Dai Traylor [facility] [employer] [facility] Start: 10-01-2019 End: 10-01-2019 Phone Encounter Dai Traylor [facility] [employer] [facility] Start: 09-29-2019 End: 09-29-2019 Office outpatient new 30 minutes Dai Fariaon [facility] Start: 09-29-2019 End: 09-29-2019 Patient encounter status Daihodan Traylor DO Work Phone: [facility] Patient encounter status Sunitha Wright [facility]; [facility] Work Phone: Patient encounter status Shelby Wing MA [facility]; [facility] Work Phone: Patient encounter status Gabe Wing MA [facility]; [facility] Work Phone: Patient encounter status Nimisha Sam CMA [facility]; [facility] Work Phone: Procedures Date Procedure Procedure Detail Performing Clinician Start: 04-14-2025 Screening mammography Meera Traylor DO Work Phone: Start: 04-07-2025 Vitamin D, 25-hydrox y measurement Dr. Dai Traylor DO Work Phone: Comment on above: Vitamin D StatusDefi ciency: <20 ng/mL (50nmol/L)Insufficiency: 20-30 ng/mL (50-75 nmol/L)Sufficiency: 30-100 ng/mL (75-250 nmol/L)Toxicity: >100 ng/mL (>250 nmol/L) Microscopic examinat ion of cervical Papanicolaou smear Shelby Chiang Comment on above: 12/10/18 Microscopic examinat ion of cervical Papanicolaou smear Lelo Barbour Comment on above: 12/10/18 Microscopic examinat ion of cervical Papanicolaou smear Sunithayamil Castillo [employer] Comment on above: 12/10/18 Microscopic examinat ion of cervical Papanicolaou smear Shelby Gravius CHIEF DEPUTY Comment on above: 12/10/18 Microscopic examinat ion of cervical Papanicolaou smear Kingtierneya Jonathon CHIEF DEPUTY Comment on above: 12/10/18 Microscopic examinat ion of cervical Papanicolaou smear Nimisha Velezceci CHIEF DEPUTY Comment on above: 12/10/18 Ophthalmic examinati on and evaluation Shelby Gravius Comment on above: 01/28 Ophthalmic examinati on and evaluation Lelo Angle Comment on above: 01/28 Ophthalmic examinati on and evaluation Sunitha Jonathan [employer] Comment on above: 01/28 Ophthalmic examinati on and evaluation Shelby Gravius CHIEF DEPUTY Comment on above: 01/28 Ophthalmic examinati on and evaluation Kingtierneya Jonathon CHIEF DEPUTY Comment on above: 01/28 Ophthalmic examinati on and evaluation Nimisha Agustinceci CHIEF DEPUTY Comment on above: 01/28 Tonsillectomy Shelby Gravius Comment on above: 1991 Tonsillectomy Lelo colon Comment on above: 1991 Tonsillectomy Sunithayamil Cordovaman [employer] Comment on above: 1991 Tonsillectomy Shelby Gravius CHIEF DEPUTY Comment on above: 1991 Tonsillectomy Gabe Holt CHIEF DEPUTY Comment on above: 1991 Tonsillectomy Nimisha Vishnu k CHIEF DEPUTY Comment on above: 1991 Tubes in ears Shelby Gravius Comment on above: 2011 Tubes in ears Lelo colon Comment on above: 2011 Tubes in ears Sunitha Jonathan [employer] Comment on above: 2011 Tubes in ears Shelby Gravius CHIEF DEPUTY Comment on above: 2011 Tubes in ears Kayela Walker CHIEF DEPUTY Comment on above: 2011 Tubes in ears Nimisha Vishnu k CHIEF DEPUTY Comment on above: 2011 Plan of Treatment Date Care Activity Detail Author Start: 07-23-2023 Assay of thyroid stimulating hormone tsh TSH (THYROID STIMULATING HORMONE) ([id number]) [facility]; [facility] Work Phone: Comment on above: re check in 6-8 weeks Start: 05-28-2023 Assay of thyroid stimulating hormone tsh TSH (THYROID STIMULATING HORMONE) ([id number]) [facility]; [facility] Work Phone: Comment on above: recheck 6-8 wks Start: 03-26-2023 Assay of free thyroxine T4, FREE (THYROXINE) ([id number]) [facility]; [facility] Work Phone: Start: 03-26-2023 Assay of thyroid stimulating hormone tsh TSH (THYROID STIMULATING HORMONE) ([id number]) [facility]; [facility] Work Phone: Start: 03-26-2023 Assay of triiodothyronine t3 free FREE TRIIDOTHYRONINE (T3) ([id number]) [facility]; [facility] Work Phone: Start: 03-23-2023 Procedure Education Eprescribed prescriptions (G8553) [facility]; [facility] Work Phone: Start: 03-23-2023 Microsomal antibodies each Anti TPO Antibody ([id number]) [facility]; [facility] Work Phone: Start: 03-23-2023 Assay of thyroid stimulating hormone tsh TSH ([id number]) [facility]; [facility] Work Phone: Start: 03-23-2023 Assay of free thyroxine T4, FREE (THYROXINE) ([id number]) [facility]; [facility] Work Phone: Start: 03-23-2023 Assay of triiodothyronine t3 free T3, FREE (TRIDOTHYRONINE) ([id number]) [facility]; [facility] Work Phone: Start: 03-23-2023 Lipid panel LIPID PANEL ([id number]) [facility]; [facility] Work Phone: Start: 10-25-2022 Procedure Education Eprescribed prescriptions (G8553) [facility]; [facility] Work Phone: Start: 10-25-2022 INHOUSE COVID 19 (ONLY) RAPID ([id number]) INHOUSE COVID 19 (ONLY) RAPID ([id number]) [facility]; [facility] Work Phone: Start: 10-25-2022 [place] influenza Inhouse FLU A+B DIRECT AG, (RAPID) ([id number]) [facility]; [facility] Work Phone: Start: 03-17-2022 Procedure Education Eprescribed prescriptions (G8553) [facility]; [facility] Work Phone: Start: 03-17-2022 Provider Instructions for Treatment Reviewed Lab [facility]; [facility] Work Phone: Start: 03-17-2022 Assay of thyroid stimulating hormone tsh TSH ([id number]) [facility]; [facility] Work Phone: Comment on above: do in sep 2022 Start: 03-17-2022 Assay of triiodothyronine t3 free T3, FREE (TRIDOTHYRONINE) ([id number]) [facility]; [facility] Work Phone: Comment on above: do in sep 2022 Start: 03-17-2022 Assay of free thyroxine T4, FREE (THYROXINE) ([id number]) [facility]; [facility] Work Phone: Start: 12-07-2021 Assay of thyroid stimulating hormone tsh TSH (THYROID STIMULATING HORMONE) ([id number]) [facility]; [facility] Work Phone: Start: 12-07-2021 Assay of free thyroxine T4, FREE (THYROXINE) ([id number]) [facility]; [facility] Work Phone: Start: 10-13-2021 Assay of free thyroxine T4, FREE (THYROXINE) ([id number]) [facility]; [facility] Work Phone: Start: 10-13-2021 Assay of thyroid stimulating hormone tsh TSH (THYROID STIMULATING HORMONE) ([id number]) [facility]; [facility] Work Phone: Start: 10-12-2021 Procedure Education Eprescribed prescriptions (G8553) [facility]; [facility] Work Phone: Start: 02-24-2021 Procedure Education Eprescribed prescriptions (G8553) [facility]; [facility] Work Phone: Start: 02-24-2021 Provider Instructions for Treatment [facility]; [facility] Work Phone: Start: 11-24-2020 Free T4 [Mass/Vol] T4, FREE (THYROXINE) ([id number]) [facility]; [facility] Work Phone: Start: 11-24-2020 Free T3 [Mass/Vol] T3, FREE (TRIDOTHYRONINE) ([id number]) [facility]; [facility] Work Phone: Start: 11-24-2020 TSH Qn TSH (THYROID STIMULATING HORMONE) ([id number]) [facility]; [facility] Work Phone: Start: 09-22-2020 Free T4 [Mass/Vol] T4, FREE (THYROXINE) ([id number]) [facility] Work Phone: Start: 09-22-2020 Free T3 [Mass/Vol] T3, FREE (TRIDOTHYRONINE) ([id number]) [facility] Work Phone: Start: 09-22-2020 TSH Qn TSH (THYROID STIMULATING HORMONE) ([id number]) [facility] Work Phone: Start: 05-31-2020 TSH Qn TSH ([id number]) [facility] Work Phone: Start: 05-31-2020 Free T4 [Mass/Vol] T4, FREE (THYROXINE) ([id number]) [facility] Work Phone: Start: 05-31-2020 Free T3 [Mass/Vol] T3, FREE (TRIDOTHYRONINE) ([id number]) [facility] Work Phone: Start: 05-27-2020 TSH Qn TSH (15553) [facility] Work Phone: Comment on above: 6-8 weeks Start: 03-29-2020 Lipid panel LIPID PANEL ([id number]) [facility] Work Phone: Start: 03-29-2020 Microsomal antibodies each Anti TPO Antibody ([id number]) [facility] Work Phone: Start: 03-29-2020 Assay of free thyroxine T4, FREE (THYROXINE) ([id number]) [facility]; [facility] Work Phone: Start: 03-29-2020 Free T4 [Mass/Vol] T4, FREE (THYROXINE) ([id number]) [facility] Work Phone: Start: 03-29-2020 Assay of triiodothyronine t3 free T3, FREE (TRIDOTHYRONINE) ([id number]) [facility]; [facility] Work Phone: Start: 03-29-2020 Free T3 [Mass/Vol] T3, FREE (TRIDOTHYRONINE) ([id number]) [facility] Work Phone: Start: 03-29-2020 Assay of thyroid stimulating hormone tsh TSH ([id number]) [facility]; [facility] Work Phone: Start: 03-29-2020 TSH Qn TSH (53658) [facility] Work Phone: Start: 03-29-2020 Procedure Education Eprescribed prescriptions (G8553) [facility] Work Phone: Start: 03-29-2020 Provider Instructions for Treatment [facility] Work Phone: Start: 11-17-2019 Assay of triiodothyronine t3 free T3, FREE (TRIDOTHYRONINE) ([id number]) [facility]; [facility] Work Phone: Start: 11-17-2019 Free T3 [Mass/Vol] T3, FREE (TRIDOTHYRONINE) ([id number]) [facility] Work Phone: Start: 10-01-2019 Assay of triiodothyronine t3 free T3, FREE (TRIDOTHYRONINE) ([id number]) [facility]; [facility] Work Phone: Start: 10-01-2019 Free T3 [Mass/Vol] T3, FREE (TRIDOTHYRONINE) ([id number]) [facility] Work Phone: Start: 10-01-2019 Assay of thyroxine total TT4 (THYROXINE TOTAL) ([id number]) [facility]; [facility] Work Phone: Start: 10-01-2019 T4 [Mass/Vol] TT4 (THYROXINE TOTAL) ([id number]) [facility] Work Phone: Start: 10-01-2019 Assay of thyroid stimulating hormone tsh TSH ([id number]) [facility]; [facility] Work Phone: Start: 10-01-2019 TSH Qn TSH ([id number]) [facility] Work Phone: Start: 09-29-2019 Microsomal antibodies each Anti TPO Antibody (21362) [facility] Work Phone: Start: 09-29-2019 TSH Qn TSH ([id number]) [facility] Work Phone: Start: 09-29-2019 Free T4 [Mass/Vol] T4, FREE (THYROXINE) ([id number]) [facility] Work Phone: Start: 09-29-2019 Free T3 [Mass/Vol] T3, FREE (TRIDOTHYRONINE) ([id number]) [facility] Work Phone: [facility] Work Phone: Immunizations Immunization Date Immunization Notes Care Provider [facility] 06-05-2018 TB Skin Test, Intradermal Dai T[facility]lor [facility] [employer] [facility] Work Phone: 08-12-2016 tetanus toxoid, adsorbed Dai Tray[facility] Work Phone: 12-31-1997 hepatitis A and hepatitis B vaccine Dai Traylor [facility] [employer] [facility] [facility] Work Phone: Payers Date Payer Category Payer Self-pay 2021 Unknown [id number] 1980 Unknown [id number] [id number] [id number] Self-pay [id number] Unknown [employer] Unknown [id number] [id number] [id number] Unknown [id number] [id number] [id number] Unknown [id number] [id number] [id number] Unknown [id number] [id number] [id number] Unknown [id number] [id number] [id number] Social History Date Type Detail Facility Caffeine Use Caffeine Use [facility] Work Phone: Living Situation: Living Situation: [facility] Work Phone: Living Situation: Living Situation: [facility]; [facility] Work Phone: Tobacco smoking status NHIS Unknown if ever smoked [facility] Work Phone: Start: 1980 Sex Assigned At Female [facility] Clinical Notes Note Date & Type Note Facility Evaluation note No assessment information availa ble [facility] Work Phone: Instructions Name Patient Instructions Indication:BMI 27.0-27.9,adult Start:12-Oct-2021 Instruction Type:Provider Instructions for Treatment How to Access Health Information Online using Patient Portal and [employer]rd [employer] Apps Indication:BMI 27.0-27.9,adult Start:12-Oct-2021 Instruction Type:Patient Education Patient Instructions Indication:Non-smoker Start: Instruction Type:Provider Instructions for Treatment How to Access Health Information Online using Patient Portal and [employer]rd [employer] Apps Indication:Non-smoker Start: 1 Instruction Type:Patient Education How to access health information online Indication:BMI 33.0-33.9,adult Start: 0 Instruction Type:Patient Education How to access health information online - Detail Indication:BMI 33.0-33.9,adult Start: 0 Instruction Type:Patient Education Patient Instructions Indication:BMI 33.0-33.9,adult Start: 0 Instruction Type:Provider Instructions for Treatment How to access health information online Indication:Non-smoker Start: 9 Instruction Type:Patient Education How to access health information online - Detail Indication:Non-smoker Start: 9 Instruction Type:Patient Education Patient Instructions Indication:Non-smoker Start: Instruction Type:Provider Instructions for Treatment [facility]; [facility] Work Phone: instructions* Name Dates Details Patient Instructions Indication:BMI 27.0-27.9,adult Start:12-Oct-2021 Instruction Type:Provider Instructions for Treatment How to Access Health Informa tion Online using Patient Portal and [employer]rd [employer] Apps Indication:BMI 27.0-27.9,adult Start:12-Oct-2021 Instruction Type:Patient Education Patient Instructions Indication:Non-smoker Start:24-Feb-2021 Instruction Type:Provider Instructions for Treatment How to Access Health Informa tion Online using Patient Portal and [employer]rd [employer] Apps Indication:Non-smoker Start:24-Feb-2021 Instruction Type:Patient Education How to access health informa tion online Indication:BMI 33.0-33.9,adult Start:29-Mar-2020 Instruction Type:Patient Education How to access health informa tion online - Detail Indication:BMI 33.0-33.9,adult Start:29-Mar-2020 Instruction Type:Patient Education Patient Instructions Indication:BMI 33.0-33.9,adult Start:29-Mar-2020 Instruction Type:Provider Instructions for Treatment How to access health informa tion online Indication:Non-smoker Start:29-Sep-2019 Instruction Type:Patient Education How to access health informa tion online - Detail Indication:Non-smoker Start:29-Sep-2019 Instruction Type:Patient Education Patient Instructions Indication:Non-smoker Start:29-Sep-2019 Instruction Type:Provider Instructions for Treatment [facility]; [facility] Work Phone: instructions* Name Dates Details Patient Instructions Indication:Non-smoker Start:17-Mar-2022 Instruction Type:Provider Instructions for Treatment How to Access Health Informa tion Online using Patient Portal and [employer]rd [employer] Apps Indication:Non-smoker Start:17-Mar-2022 Instruction Type:Patient Education Patient Instructions Indication:BMI 27.0-27.9,adult Start:12-Oct-2021 Instruction Type:Provider Instructions for Treatment How to Access Health Informa tion Online using Patient Portal and [employer]rd [employer] Apps Indication:BMI 27.0-27.9,adult Start:12-Oct-2021 Instruction Type:Patient Education Patient Instructions Indication:Non-smoker Start:24-Feb-2021 Instruction Type:Provider Instructions for Treatment How to Access Health Informa tion Online using Patient Portal and [employer]rd [employer] Apps Indication:Non-smoker Start:24-Feb-2021 Instruction Type:Patient Education How to access health informa tion online Indication:BMI 33.0-33.9,adult Start:29-Mar-2020 Instruction Type:Patient Education How to access health informa tion online - Detail Indication:BMI 33.0-33.9,adult Start:29-Mar-2020 Instruction Type:Patient Education Patient Instructions Indication:BMI 33.0-33.9,adult Start:29-Mar-2020 Instruction Type:Provider Instructions for Treatment How to access health informa tion online Indication:Non-smoker Start:29-Sep-2019 Instruction Type:Patient Education How to access health informa tion online - Detail Indication:Non-smoker Start:29-Sep-2019 Instruction Type:Patient Education Patient Instructions Indication:Non-smoker Start:29-Sep-2019 Instruction Type:Provider Instructions for Treatment [facility]; [facility] Work Phone: Instructions* Name Dates Details Patient Instructions Indication:Non-smoker Start:17-Mar-2022 Instruction Type:Provider Instructions for Treatment How to Access Health Informa tion Online using Patient Portal and [employer]rd [employer] Apps Indication:Non-smoker Start:17-Mar-2022 Instruction Type:Patient Education Patient Instructions Indication:BMI 27.0-27.9,adult Start:12-Oct-2021 Instruction Type:Provider Instructions for Treatment How to Access Health Informa tion Online using Patient Portal and [employer]rd [employer] Apps Indication:BMI 27.0-27.9,adult Start:12-Oct-2021 Instruction Type:Patient Education Patient Instructions Indication:Non-smoker Start:24-Feb-2021 Instruction Type:Provider Instructions for Treatment How to Access Health Informa tion Online using Patient Portal and [employer]rd [employer] Apps Indication:Non-smoker Start:24-Feb-2021 Instruction Type:Patient Education How to access health informa tion online Indication:BMI 33.0-33.9,adult Start:29-Mar-2020 Instruction Type:Patient Education How to access health informa tion online - Detail Indication:BMI 33.0-33.9,adult Start:29-Mar-2020 Instruction Type:Patient Education Patient Instructions Indication:BMI 33.0-33.9,adult Start:29-Mar-2020 Instruction Type:Provider Instructions for Treatment How to access health informa tion online Indication:Non-smoker Start:29-Sep-2019 Instruction Type:Patient Education How to access health informa tion online - Detail Indication:Non-smoker Start:29-Sep-2019 Instruction Type:Patient Education Patient Instructions Indication:Non-smoker Start:29-Sep-2019 Instruction Type:Provider Instructions for Treatment [facility]; [facility] Work Phone: Instructions* Name Dates Details Patient Instructions Indication:Non-smoker Start:17-Mar-2022 Instruction Type:Provider Instructions for Treatment How to Access Health Informa tion Online using Patient Portal and [employer]rd [employer] Apps Indication:Non-smoker Start:17-Mar-2022 Instruction Type:Patient Education Patient Instructions Indication:BMI 27.0-27.9,adult Start:12-Oct-2021 Instruction Type:Provider Instructions for Treatment How to Access Health Informa tion Online using Patient Portal and [employer]rd [employer] Apps Indication:BMI 27.0-27.9,adult Start:12-Oct-2021 Instruction Type:Patient Education Patient Instructions Indication:Non-smoker Start:24-Feb-2021 Instruction Type:Provider Instructions for Treatment How to Access Health Informa tion Online using Patient Portal and [employer]rd [employer] Apps Indication:Non-smoker Start:24-Feb-2021 Instruction Type:Patient Education How to access health informa tion online Indication:BMI 33.0-33.9,adult Start:29-Mar-2020 Instruction Type:Patient Education How to access health informa tion online - Detail Indication:BMI 33.0-33.9,adult Start:29-Mar-2020 Instruction Type:Patient Education Patient Instructions Indication:BMI 33.0-33.9,adult Start:29-Mar-2020 Instruction Type:Provider Instructions for Treatment How to access health informa tion online Indication:Non-smoker Start:29-Sep-2019 Instruction Type:Patient Education How to access health informa tion online - Detail Indication:Non-smoker Start:29-Sep-2019 Instruction Type:Patient Education Patient Instructions Indication:Non-smoker Start:29-Sep-2019 Instruction Type:Provider Instructions for Treatment [facility]; [facility] Work Phone: instructions* Name Dates Details Patient Instructions Indication:BMI 31.0-31.9,adult Start:25-Oct-2022 Instruction Type:Provider Instructions for Treatment How to Access Health Informa tion Online using Patient Portal and 3rd [employer] Apps Indication:BMI 31.0-31.9,adult Start:25-Oct-2022 Instruction Type:Patient Education Patient Instructions Indication:Non-smoker Start:17-Mar-2022 Instruction Type:Provider Instructions for Treatment How to Access Health Informa tion Online using Patient Portal and [employer]rd [employer] Apps Indication:Non-smoker Start:17-Mar-2022 Instruction Type:Patient Education Patient Instructions Indication:BMI 27.0-27.9,adult Start:12-Oct-2021 Instruction Type:Provider Instructions for Treatment How to Access Health Informa tion Online using Patient Portal and [employer]rd [employer] Apps Indication:BMI 27.0-27.9,adult Start:12-Oct-2021 Instruction Type:Patient Education Patient Instructions Indication:Non-smoker Start:24-Feb-2021 Instruction Type:Provider Instructions for Treatment How to Access Health Informa tion Online using Patient Portal and [employer]rd [employer] Apps Indication:Non-smoker Start:24-Feb-2021 Instruction Type:Patient Education How to access health informa tion online Indication:BMI 33.0-33.9,adult Start:29-Mar-2020 Instruction Type:Patient Education How to access health informa tion online - Detail Indication:BMI 33.0-33.9,adult Start:29-Mar-2020 Instruction Type:Patient Education Patient Instructions Indication:BMI 33.0-33.9,adult Start:29-Mar-2020 Instruction Type:Provider Instructions for Treatment How to access health informa tion online Indication:Non-smoker Start:29-Sep-2019 Instruction Type:Patient Education How to access health informa tion online - Detail Indication:Non-smoker Start:29-Sep-2019 Instruction Type:Patient Education Patient Instructions Indication:Non-smoker Start:29-Sep-2019 Instruction Type:Provider Instructions for Treatment [facility]; [facility] Work Phone: Instructions* Name Dates Details 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 Instruction Type:Provider Instructions for Treatment How to Access Health Informa tion Online using Patient Portal and 3rd [employer] Apps 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 Instruction Type:Patient Education Patient Instructions Indication:BMI 31.0-31.9,adult Start:25-Oct-2022 Instruction Type:Provider Instructions for Treatment How to Access Health Informa tion Online using Patient Portal and [employer]rd [employer] Apps Indication:BMI 31.0-31.9,adult Start:25-Oct-2022 Instruction Type:Patient Education Patient Instructions Indication:Non-smoker Start:17-Mar-2022 Instruction Type:Provider Instructions for Treatment How to Access Health Informa tion Online using Patient Portal and 3rd [employer] Apps Indication:Non-smoker Start:17-Mar-2022 Instruction Type:Patient Education Patient Instructions Indication:BMI 27.0-27.9,adult Start:12-Oct-2021 Instruction Type:Provider Instructions for Treatment How to Access Health Informa tion Online using Patient Portal and [employer]rd [employer] Apps Indication:BMI 27.0-27.9,adult Start:12-Oct-2021 Instruction Type:Patient Education Patient Instructions Indication:Non-smoker Start:24-Feb-2021 Instruction Type:Provider Instructions for Treatment How to Access Health Informa tion Online using Patient Portal and [employer]rd [employer] Apps Indication:Non-smoker Start:24-Feb-2021 Instruction Type:Patient Education How to access health informa tion online Indication:BMI 33.0-33.9,adult Start:29-Mar-2020 Instruction Type:Patient Education How to access health informa tion online - Detail Indication:BMI 33.0-33.9,adult Start:29-Mar-2020 Instruction Type:Patient Education Patient Instructions Indication:BMI 33.0-33.9,adult Start:29-Mar-2020 Instruction Type:Provider Instructions for Treatment How to access health informa tion online Indication:Non-smoker Start:29-Sep-2019 Instruction Type:Patient Education How to access health informa tion online - Detail Indication:Non-smoker Start:29-Sep-2019 Instruction Type:Patient Education Patient Instructions Indication:Non-smoker Start:29-Sep-2019 Instruction Type:Provider Instructions for Treatment [facility]; [facility] Work Phone: Instructions* Name Dates Details 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 Instruction Type:Provider Instructions for Treatment How to Access Health Informa tion Online using Patient Portal and [employer]rd [employer] Apps 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 Instruction Type:Patient Education Patient Instructions Indication:BMI 31.0-31.9,adult Start:25-Oct-2022 Instruction Type:Provider Instructions for Treatment How to Access Health Informa tion Online using Patient Portal and [employer]rd [employer] Apps Indication:BMI 31.0-31.9,adult Start:25-Oct-2022 Instruction Type:Patient Education Patient Instructions Indication:Non-smoker Start:17-Mar-2022 Instruction Type:Provider Instructions for Treatment How to Access Health Informa tion Online using Patient Portal and [employer]rd [employer] Apps Indication:Non-smoker Start:17-Mar-2022 Instruction Type:Patient Education Patient Instructions Indication:BMI 27.0-27.9,adult Start:12-Oct-2021 Instruction Type:Provider Instructions for Treatment How to Access Health Informa tion Online using Patient Portal and 3rd [employer] Apps Indication:BMI 27.0-27.9,adult Start:12-Oct-2021 Instruction Type:Patient Education Patient Instructions Indication:Non-smoker Start:24-Feb-2021 Instruction Type:Provider Instructions for Treatment How to Access Health Informa tion Online using Patient Portal and [employer]rd [employer] Apps Indication:Non-smoker Start:24-Feb-2021 Instruction Type:Patient Education How to access health informa tion online Indication:BMI 33.0-33.9,adult Start:29-Mar-2020 Instruction Type:Patient Education How to access health informa tion online - Detail Indication:BMI 33.0-33.9,adult Start:29-Mar-2020 Instruction Type:Patient Education Patient Instructions Indication:BMI 33.0-33.9,adult Start:29-Mar-2020 Instruction Type:Provider Instructions for Treatment How to access health informa tion online Indication:Non-smoker Start:29-Sep-2019 Instruction Type:Patient Education How to access health informa tion online - Detail Indication:Non-smoker Start:29-Sep-2019 Instruction Type:Patient Education Patient Instructions Indication:Non-smoker Start:29-Sep-2019 Instruction Type:Provider Instructions for Treatment [facility]; [facility] Work Phone: Instructions* Name Dates Details 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 Instruction Type:Provider Instructions for Treatment How to Access Health Informa tion Online using Patient Portal and 3rd [employer] Apps 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 Instruction Type:Patient Education Patient Instructions Indication:BMI 31.0-31.9,adult Start:25-Oct-2022 Instruction Type:Provider Instructions for Treatment How to Access Health Informa tion Online using Patient Portal and 3rd [employer] Apps Indication:BMI 31.0-31.9,adult Start:25-Oct-2022 Instruction Type:Patient Education Patient Instructions Indication:Non-smoker Start:17-Mar-2022 Instruction Type:Provider Instructions for Treatment How to Access Health Informa tion Online using Patient Portal and [employer]rd [employer] Apps Indication:Non-smoker Start:17-Mar-2022 Instruction Type:Patient Education Patient Instructions Indication:BMI 27.0-27.9,adult Start:12-Oct-2021 Instruction Type:Provider Instructions for Treatment How to Access Health Informa tion Online using Patient Portal and [employer] Apps Indication:BMI 27.0-27.9,adult Start:12-Oct-2021 Instruction Type:Patient Education Patient Instructions Indication:Non-smoker Start:24-Feb-2021 Instruction Type:Provider Instructions for Treatment How to Access Health Informa tion Online using Patient Portal and [employer] Apps Indication:Non-smoker Start:24-Feb-2021 Instruction Type:Patient Education How to access health informa tion online Indication:BMI 33.0-33.9,adult Start:29-Mar-2020 Instruction Type:Patient Education How to access health informa tion online - Detail Indication:BMI 33.0-33.9,adult Start:29-Mar-2020 Instruction Type:Patient Education Patient Instructions Indication:BMI 33.0-33.9,adult Start:29-Mar-2020 Instruction Type:Provider Instructions for Treatment How to access health informa tion online Indication:Non-smoker Start:29-Sep-2019 Instruction Type:Patient Education How to access health informa tion online - Detail Indication:Non-smoker Start:29-Sep-2019 Instruction Type:Patient Education Patient Instructions Indication:Non-smoker Start:29-Sep-2019 Instruction Type:Provider Instructions for Treatment [facility]; [facility] Work Phone: Instructions* Name Dates Details 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 Instruction Type:Provider Instructions for Treatment How to Access Health Informa tion Online using Patient Portal and [employer]rd [employer] Apps 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 Instruction Type:Patient Education Patient Instructions Indication:BMI 31.0-31.9,adult Start:25-Oct-2022 Instruction Type:Provider Instructions for Treatment How to Access Health Informa tion Online using Patient Portal and [employer]rd [employer] Apps Indication:BMI 31.0-31.9,adult Start:25-Oct-2022 Instruction Type:Patient Education Patient Instructions Indication:Non-smoker Start:17-Mar-2022 Instruction Type:Provider Instructions for Treatment How to Access Health Informa tion Online using Patient Portal and [employer]rd [employer] Apps Indication:Non-smoker Start:17-Mar-2022 Instruction Type:Patient Education Patient Instructions Indication:BMI 27.0-27.9,adult Start:12-Oct-2021 Instruction Type:Provider Instructions for Treatment How to Access Health Informa tion Online using Patient Portal and [employer]rd [employer] Apps Indication:BMI 27.0-27.9,adult Start:12-Oct-2021 Instruction Type:Patient Education Patient Instructions Indication:Non-smoker Start:24-Feb-2021 Instruction Type:Provider Instructions for Treatment How to Access Health Informa tion Online using Patient Portal and [employer]rd [employer] Apps Indication:Non-smoker Start:24-Feb-2021 Instruction Type:Patient Education How to access health informa tion online Indication:BMI 33.0-33.9,adult Start:29-Mar-2020 Instruction Type:Patient Education How to access health informa tion online - Detail Indication:BMI 33.0-33.9,adult Start:29-Mar-2020 Instruction Type:Patient Education Patient Instructions Indication:BMI 33.0-33.9,adult Start:29-Mar-2020 Instruction Type:Provider Instructions for Treatment How to access health informa tion online Indication:Non-smoker Start:29-Sep-2019 Instruction Type:Patient Education How to access health informa tion online - Detail Indication:Non-smoker Start:29-Sep-2019 Instruction Type:Patient Education Patient Instructions Indication:Non-smoker Start:29-Sep-2019 Instruction Type:Provider Instructions for Treatment [facility]; [facility] Work Phone: Instructions* Name Dates Details 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 Instruction Type:Provider Instructions for Treatment How to Access Health Informa tion Online using Patient Portal and [employer]rd [employer] Apps 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 Instruction Type:Patient Education Patient Instructions Indication:BMI 31.0-31.9,adult Start:25-Oct-2022 Instruction Type:Provider Instructions for Treatment How to Access Health Informa tion Online using Patient Portal and [employer]rd [employer] Apps Indication:BMI 31.0-31.9,adult Start:25-Oct-2022 Instruction Type:Patient Education Patient Instructions Indication:Non-smoker Start:17-Mar-2022 Instruction Type:Provider Instructions for Treatment How to Access Health Informa tion Online using Patient Portal and [employer]rd [employer] Apps Indication:Non-smoker Start:17-Mar-2022 Instruction Type:Patient Education Patient Instructions Indication:BMI 27.0-27.9,adult Start:12-Oct-2021 Instruction Type:Provider Instructions for Treatment How to Access Health Informa tion Online using Patient Portal and [employer]rd [employer] Apps Indication:BMI 27.0-27.9,adult Start:12-Oct-2021 Instruction Type:Patient Education Patient Instructions Indication:Non-smoker Start:24-Feb-2021 Instruction Type:Provider Instructions for Treatment How to Access Health Informa tion Online using Patient Portal and [employer]rd [employer] Apps Indication:Non-smoker Start:24-Feb-2021 Instruction Type:Patient Education How to access health informa tion online Indication:BMI 33.0-33.9,adult Start:29-Mar-2020 Instruction Type:Patient Education How to access health informa tion online - Detail Indication:BMI 33.0-33.9,adult Start:29-Mar-2020 Instruction Type:Patient Education Patient Instructions Indication:BMI 33.0-33.9,adult Start:29-Mar-2020 Instruction Type:Provider Instructions for Treatment How to access health informa tion online Indication:Non-smoker Start:29-Sep-2019 Instruction Type:Patient Education How to access health informa tion online - Detail Indication:Non-smoker Start:29-Sep-2019 Instruction Type:Patient Education Patient Instructions Indication:Non-smoker Start:29-Sep-2019 Instruction Type:Provider Instructions for Treatment [facility]; [facility] Work Phone: reason for referral (narrative)[facility] Family History No Family History Records FoundUnknown Family Member Name Dates Details Cancer Comments:pancreatic Status:Active Hypertension Comments:Father. Status:Active Prostate Cancer Status:Active Unknown Family Member Name Dates Details Cancer Comments:pancreatic Status:Active Hypertension Comments:Father. Status:Active Prostate Cancer Status:Active Unknown Family Member Name Dates Details Cancer Comments:pancreatic Status:Active Hypertension Comments:Father. Status:Active Prostate Cancer Status:Active Unknown Family Member Name Dates Details Cancer Comments:pancreatic Status:Active Hypertension Comments:Father. Status:Active Prostate Cancer Status:Active Unknown Family Member Name Dates Details Cancer Comments:pancreatic Status:Active Hypertension Comments:Father. Status:Active Prostate Cancer Status:Active Unknown Family Member Name Dates Details Cancer Comments:pancreatic Status:Active Hypertension Comments:Father. Status:Active Prostate Cancer Status:Active Unknown Family Member Name Dates Details Cancer Comments:pancreatic Status:Active Hypertension Comments:Father. Status:Active Prostate Cancer Status:Active Unknown Family Member Name Dates Details Cancer Comments:pancreatic Status:Active Hypertension Comments:Father. Status:Active Prostate Cancer Status:Active Unknown Family Member Name Dates Details Cancer Comments:pancreatic Status:Active Hypertension Comments:Father. Status:Active Prostate Cancer Status:Active Unknown Family Member Name Dates Details Cancer Comments:pancreatic Status:Active Hypertension Comments:Father. Status:Active Prostate Cancer Status:Active Unknown Family Member Name Dates Details Cancer Comments:pancreatic Status:Active Hypertension Comments:Father. Status:Active Prostate Cancer Status:Active Unknown Family Member Name Dates Details Cancer Comments:pancreatic Status:Active Hypertension Comments:Father. Status:Active Prostate Cancer Status:Active Unknown Family Member Name Dates Details Cancer Comments:pancreatic Status:Active Hypertension Comments:Father. Status:Active Prostate Cancer Status:Active Unknown Family Member Name Dates Details Cancer Comments:pancreatic Status:Active Hypertension Comments:Father. Status:Active Prostate Cancer Status:Active Unknown Family Member Name Dates Details Cancer Comments:pancreatic Status:Active Hypertension Comments:Father. Status:Active Prostate Cancer Status:Active Unknown Family Member Name Dates Details Cancer Comments:pancreatic Status:Active Hypertension Comments:Father. Status:Active Prostate Cancer Status:Active Unknown Family Member Name Dates Details Cancer Comments:pancreatic Status:Active Hypertension Comments:Father. Status:Active Prostate Cancer Status:Active Unknown Family Member Name Dates Details Cancer Comments:pancreatic Status:Active Hypertension Comments:Father. Status:Active Prostate Cancer Status:Active Unknown Family Member Name Dates Details Cancer Comments:pancreatic Status:Active Hypertension Comments:Father. Status:Active Prostate Cancer Status:Active Unknown Family Member Name Dates Details Cancer Comments:pancreatic Status:Active Hypertension Comments:Father. Status:Active Prostate Cancer Status:Active Unknown Family Member Name Dates Details Cancer Comments:pancreatic Status:Active Hypertension Comments:Father. Status:Active Prostate Cancer Status:Active Instructions Name Dates Details How to access health informa tion online Indication:BMI 33.0-33.9,adult Start:29-Mar-2020 Instruction Type:Patient Education How to access health informa tion online - Detail Indication:BMI 33.0-33.9,adult Start:29-Mar-2020 Instruction Type:Patient Education Patient Instructions Indication:BMI 33.0-33.9,adult Start:29-Mar-2020 Instruction Type:Provider Instructions for Treatment How to access health informa tion online Indication:Non-smoker Start:29-Sep-2019 Instruction Type:Patient Education How to access health informa tion online - Detail Indication:Non-smoker Start:29-Sep-2019 Instruction Type:Patient Education Patient Instructions Indication:Non-smoker Start:29-Sep-2019 Instruction Type:Provider Instructions for Treatment Name Dates Details How to access health informa tion online Indication:BMI 33.0-33.9,adult Start:29-Mar-2020 Instruction Type:Patient Education How to access health informa tion online - Detail Indication:BMI 33.0-33.9,adult Start:29-Mar-2020 Instruction Type:Patient Education Patient Instructions Indication:BMI 33.0-33.9,adult Start:29-Mar-2020 Instruction Type:Provider Instructions for Treatment How to access health informa tion online Indication:Non-smoker Start:29-Sep-2019 Instruction Type:Patient Education How to access health informa tion online - Detail Indication:Non-smoker Start:29-Sep-2019 Instruction Type:Patient Education Patient Instructions Indication:Non-smoker Start:29-Sep-2019 Instruction Type:Provider Instructions for Treatment Name Dates Details How to access health informa tion online Indication:BMI 33.0-33.9,adult Start:29-Mar-2020 Instruction Type:Patient Education How to access health informa tion online - Detail Indication:BMI 33.0-33.9,adult Start:29-Mar-2020 Instruction Type:Patient Education Patient Instructions Indication:BMI 33.0-33.9,adult Start:29-Mar-2020 Instruction Type:Provider Instructions for Treatment How to access health informa tion online Indication:Non-smoker Start:29-Sep-2019 Instruction Type:Patient Education How to access health informa tion online - Detail Indication:Non-smoker Start:29-Sep-2019 Instruction Type:Patient Education Patient Instructions Indication:Non-smoker Start:29-Sep-2019 Instruction Type:Provider Instructions for Treatment Name Dates Details How to access health informa tion online Indication:BMI 33.0-33.9,adult Start:29-Mar-2020 Instruction Type:Patient Education How to access health informa tion online - Detail Indication:BMI 33.0-33.9,adult Start:29-Mar-2020 Instruction Type:Patient Education Patient Instructions Indication:BMI 33.0-33.9,adult Start:29-Mar-2020 Instruction Type:Provider Instructions for Treatment How to access health informa tion online Indication:Non-smoker Start:29-Sep-2019 Instruction Type:Patient Education How to access health informa tion online - Detail Indication:Non-smoker Start:29-Sep-2019 Instruction Type:Patient Education Patient Instructions Indication:Non-smoker Start:29-Sep-2019 Instruction Type:Provider Instructions for Treatment Name Dates Details How to access health informa tion online Indication:BMI 33.0-33.9,adult Start:29-Mar-2020 Instruction Type:Patient Education How to access health informa tion online - Detail Indication:BMI 33.0-33.9,adult Start:29-Mar-2020 Instruction Type:Patient Education Patient Instructions Indication:BMI 33.0-33.9,adult Start:29-Mar-2020 Instruction Type:Provider Instructions for Treatment How to access health informa tion online Indication:Non-smoker Start:29-Sep-2019 Instruction Type:Patient Education How to access health informa tion online - Detail Indication:Non-smoker Start:29-Sep-2019 Instruction Type:Patient Education Patient Instructions Indication:Non-smoker Start:29-Sep-2019 Instruction Type:Provider Instructions for Treatment Name Dates Details How to access health informa tion online Indication:BMI 33.0-33.9,adult Start:29-Mar-2020 Instruction Type:Patient Education How to access health informa tion online - Detail Indication:BMI 33.0-33.9,adult Start:29-Mar-2020 Instruction Type:Patient Education Patient Instructions Indication:BMI 33.0-33.9,adult Start:29-Mar-2020 Instruction Type:Provider Instructions for Treatment How to access health informa tion online Indication:Non-smoker Start:29-Sep-2019 Instruction Type:Patient Education How to access health informa tion online - Detail Indication:Non-smoker Start:29-Sep-2019 Instruction Type:Patient Education Patient Instructions Indication:Non-smoker Start:29-Sep-2019 Instruction Type:Provider Instructions for Treatment Name Dates Details How to access health informa tion online Indication:BMI 33.0-33.9,adult Start:29-Mar-2020 Instruction Type:Patient Education How to access health informa tion online - Detail Indication:BMI 33.0-33.9,adult Start:29-Mar-2020 Instruction Type:Patient Education Patient Instructions Indication:BMI 33.0-33.9,adult Start:29-Mar-2020 Instruction Type:Provider Instructions for Treatment How to access health informa tion online Indication:Non-smoker Start:29-Sep-2019 Instruction Type:Patient Education How to access health informa tion online - Detail Indication:Non-smoker Start:29-Sep-2019 Instruction Type:Patient Education Patient Instructions Indication:Non-smoker Start:29-Sep-2019 Instruction Type:Provider Instructions for Treatment Name Dates Details How to access health informa tion online Indication:Non-smoker Start:29-Sep-2019 Instruction Type:Patient Education How to access health informa tion online - Detail Indication:Non-smoker Start:29-Sep-2019 Instruction Type:Patient Education Patient Instructions Indication:Non-smoker Start:29-Sep-2019 Instruction Type:Provider Instructions for Treatment Name Dates Details How to access health informa tion online Indication:BMI 33.0-33.9,adult Start:29-Mar-2020 Instruction Type:Patient Education How to access health informa tion online - Detail Indication:BMI 33.0-33.9,adult Start:29-Mar-2020 Instruction Type:Patient Education Patient Instructions Indication:BMI 33.0-33.9,adult Start:29-Mar-2020 Instruction Type:Provider Instructions for Treatment How to access health informa tion online Indication:Non-smoker Start:29-Sep-2019 Instruction Type:Patient Education How to access health informa tion online - Detail Indication:Non-smoker Start:29-Sep-2019 Instruction Type:Patient Education Patient Instructions Indication:Non-smoker Start:29-Sep-2019 Instruction Type:Provider Instructions for Treatment Name Dates Details How to access health informa tion online Indication:BMI 33.0-33.9,adult Start:29-Mar-2020 Instruction Type:Patient Education How to access health informa tion online - Detail Indication:BMI 33.0-33.9,adult Start:29-Mar-2020 Instruction Type:Patient Education Patient Instructions Indication:BMI 33.0-33.9,adult Start:29-Mar-2020 Instruction Type:Provider Instructions for Treatment How to access health informa tion online Indication:Non-smoker Start:29-Sep-2019 Instruction Type:Patient Education How to access health informa tion online - Detail Indication:Non-smoker Start:29-Sep-2019 Instruction Type:Patient Education Patient Instructions Indication:Non-smoker Start:29-Sep-2019 Instruction Type:Provider Instructions for Treatment Advance Directives No Advanced Directives Records Found Name Dates Details Immunization Registry [facility] - Effective on 09/29/2019. Expiration date unspecified Effective:29-Sep-2019 Name Dates Details Immunization Registry [facility] - Effective on 09/29/2019. Expiration date unspecified Effective:29-Sep-2019 Name Dates Details Immunization Registry [facility] - Effective on 09/29/2019. Expiration date unspecified Effective:29-Sep-2019 Name Dates Details Immunization Registry [facility] - Effective on 09/29/2019. Expiration date unspecified Effective:29-Sep-2019 Name Dates Details Immunization Registry [facility] - Effective on 09/29/2019. Expiration date unspecified Effective:29-Sep-2019 Name Dates Details Immunization Registry [facility] - Effective on 09/29/2019. Expiration date unspecified Effective:29-Sep-2019 Name Dates Details Immunization Registry [facility] - Effective on 09/29/2019. Expiration date unspecified Effective:29-Sep-2019 Name Dates Details Immunization Registry [facility] - Effective on 09/29/2019. Expiration date unspecified Effective:29-Sep-2019 Name Dates Details Immunization Registry [facility] - Effective on 09/29/2019. Expiration date unspecified Effective:29-Sep-2019 Name Dates Details Immunization Registry [facility] - Effective on 09/29/2019. Expiration date unspecified Effective:29-Sep-2019 Name Dates Details Immunization Registry [facility] - Effective on 09/29/2019. Expiration date unspecified Effective:29-Sep-2019 Name Dates Details Immunization Registry [facility] - Effective on 09/29/2019. Expiration date unspecified Effective:29-Sep-2019 Name Dates Details Immunization Registry [facility] - Effective on 09/29/2019. Expiration date unspecified Effective:29-Sep-2019 Name Dates Details Immunization Registry [facility] - Effective on 09/29/2019. Expiration date unspecified Effective:29-Sep-2019 Name Dates Details Immunization Registry [facility] - Effective on 09/29/2019. Expiration date unspecified Effective:29-Sep-2019 Name Dates Details Immunization Registry [facility] - Effective on 09/29/2019. Expiration date unspecified Effective:29-Sep-2019 Name Dates Details Immunization Registry [facility] - Effective on 09/29/2019. Expiration date unspecified Effective:29-Sep-2019 Name Dates Details Immunization Registry [facility] - Effective on 09/29/2019. Expiration date unspecified Effective:29-Sep-2019 Summary Purpose Chief Complaint and Reason for Visit Chief Complaint Admit Date FASTING April 07, 2025 3:41p m SCREENING April 14, 2025 3:29p m Chief Complaint Admit Date FASTING April 07, 2025 3:41p m Chief Complaint Admit Date FASTING April 07, 2025 3:41p m SCREENING April 14, 2025 3:29p m ONLY CBC May 11, 2025 3:36 pm Additional Source Comments INFORMATION SOURCE (unrecogn ized section and content) DATE CREATED AUTHOR 03/13/2023 [facility] DATE CREATED AUTHOR AUTHOR'S ORGANIZ ATION 06/01/2025 [facility] Care Teams (unrecognized sec tion and content) Team Status: Active Member Role Status Dates Dr. Dai Traylor DO Primary Care Provider Active Team Status: Inactive Member Role Status Dates Dr. Dai Traylor DO Primary Care Provider Active Start: April 07, 2025 End: April 07, 2025 Dr. Dai Traylor DO Attending Provider Active Start: April 07, 2025 End: April 07, 2025 Dr. Dai Traylor DO Referring Provider Active Start: April 07, 2025 End: April 07, 2025 Team Status: Inactive Member Role Status Dates Dr. Dai Traylor DO Primary Care Provider Active Start: April 14, 2025 End: April 14, 2025 Dr. Dai Traylor DO Attending Provider Active Start: April 14, 2025 End: April 14, 2025 Dr. Dai Traylor DO Referring Provider Active Start: April 14, 2025 End: April 14, 2025 Team Status: Active Member Role/Relationship Status Dates Dr. Dai Traylor DO Primary Care Provider Active Team Status: Inactive Member Role/Relationship Status Dates Dr. Dai Traylor DO Primary Care Provider Active Start: April 07, 2025 End: April 07, 2025 Dr. Dai Traylor DO Attending Provider Active Start: April 07, 2025 End: April 07, 2025 Dr. Dai Traylor DO Referring Provider Active Start: April 07, 2025 End: April 07, 2025 Team Status: Inactive Member Role/Relationship Status Dates Dr. Dai Traylor DO Primary Care Provider Active Start: April 14, 2025 End: April 14, 2025 Dr. Dai Traylor DO Attending Provider Active Start: April 14, 2025 End: April 14, 2025 Dr. Dai Traylor DO Referring Provider Active Start: April 14, 2025 End: April 14, 2025 Team Status: Inactive Member Role/Relationship Status Dates Dr. Dai Traylor DO Primary Care Provider Active Start: May 11, 2025 End: May 11, 2025 Dr. Dai Traylor DO Attending Provider Active Start: May 11, 2025 End: May 11, 2025 Dr. Dai Traylor DO Referring Provider Active Start: May 11, 2025 End: May 11, 2025 Team Status: Inactive Member Role/Relationship Status Dates Dr. Dai Traylor DO Primary Care Provider Active Start: May 25, 2025 End: May 25, 2025 Dr. Dai Traylor DO Attending Provider Active Start: May 25, 2025 End: May 25, 2025 Dr. Dai Traylor DO Referring Provider Active Start: May 25, 2025 End: May 25, 2025 Goals (unrecognized section and content) Goals may be documented in a n alternate sectionGoals may be documented in an alternate sectionGoals may be documented in an alternate sectionGoals may be documented in an alternate section FOR RECORDS PERTAINING TO PATIENTS WHO ARE OR HAVE BEEN ENROLLED IN A CHEMICAL DEPENDENCY/SUBSTANCEABUSE PROGRAM, SOME INFORMATION MAY BE OMITTED. This clinical summary was aggregated from multiple sources. Caution should be exercised in using it in the provision of clinical care. This summary normalizes information from multiple sources, and as a consequence, information in this document may materially change the coding, format and clinical context of patient data. In addition, data may be omitted in some cases. CLINICAL DECISIONS SHOULD BE BASED ON THE PRIMARY CLINICAL RECORDS. [facility] [employer] [facility]. provides no warranty or guarantee of the accuracy or completeness of information in this document.
[2025-07-10 10:34] LABS: Hematocrit 43.8 % (37-47); Hemoglobin 14.6 g/dL (12.0-15.0); Immature Granulocytes Count 0.020 X10^3/uL (0.0-0.0); Mean Corp Hgb Conc 33.3 g/dL (32-36); Mean Corpuscular Volume 89.8 fL (81-99); Mean Platelet Vol. 9.8 fl (6.2-12.0); NRBC Flagged by Analyzer 0 % (0-5); Platelet Count 287 K/mm3 (150-450); RBC Distribution Width CV 12.4 % (11.6-14.6); RBC Distribution Width SD 41.0 fl (35.1-43.9); Red Blood Count 4.88 M/mm3 (4.2-5.4); White Blood Count 8.6 K/mm3 (4.4-11.0)
[2025-07-10 11:10] LABS: Ferritin 74 ng/mL (22-378); Iron 187 ug/dL (50-170); Iron Binding Capacity,Total 363 ug/dL (250-450); Iron Binding Capacity,Unsat 176 ug/dL (228-428)
== END | disposition home or self-care (01) ==
LOC: LAB 07:10 → MTLAB 07:17
PROVIDERS: PCP Internal Medicine; Referring Provider Internal Medicine; Visit Provider Internal Medicine
DX: D72.829 Elevated white blood cell count, unspecified (principal); D58.2 Other hemoglobinopathies
CPT/HCPCS: 36415; 82728; 83540; 83550; 85025

== ENCOUNTER → 2025-09-11 | Outpatient (CLI) | payer OTHER, SELFPAY ==
[2025-09-11 11:25] LABS: Free T3 2.8 pg/mL (2.18-3.98); Vitamin B12 500 pg/mL (180-914)
[2025-09-11 11:26] LABS: FOLATES,SERUM (FOLIC ACID) 15.20 ng/mL (4.60-34.80)
== END | disposition home or self-care (01) ==
LOC: MTLAB 07:15
PROVIDERS: PCP Internal Medicine; Referring Provider Internal Medicine; Visit Provider Internal Medicine
DX: E06.3 Autoimmune thyroiditis (principal); R53.83 Other fatigue
CPT/HCPCS: 36415; 82607; 82746; 84439; 84443; 84481